=== PATIENT | female | born 1950 | race Caucasian/White ===

== ENCOUNTER → 2017-11-17 11:11 | Outpatient (CLI) | payer OTHER, SELFPAY ==
[2017-11-20 16:56] LABS: Fecal Immunochemical Test NOT DETECTED
== END ==
PROVIDERS: PCP Family Medicine; Visit Provider Family Medicine
DX: Z12.11 Encounter for screening for malignant neoplasm of colon (principal)
CPT/HCPCS: 82274

== ENCOUNTER → 2018-03-21 15:56 | Outpatient (CLI) | payer OTHER, SELFPAY ==
--- NOTE | 2018-03-21 15:58 | DI.RAD.S_ITS ---
PROCEDURE: XR LUMBAR SPINE 2-3V INDICATIONS: pelvic pain TECHNIQUE: 3 views of the lumbar spine were acquired. COMPARISON: None. FINDINGS: Bones: 5 [id number] vertebrae are present. There is dextroscoliotic bony alignment moderate in severity centered at L2. No vertebral body compression fractures. No suspicious bony lesions. Degenerative disc disease is moderate in severity along the lumbosacral spine and most prominent at L1-L2 and L4-L5. Facet osteoarthritis is moderate along the lumbosacral spine and most evident at L5-S1. Minimal anterolisthesis of L5 on S1 is incidentally noted. Soft tissues: Overlying bowel gas pattern is normal. No suspicious soft tissue calcifications. IMPRESSION: Chronic degenerative changes of convex right scoliosis this margins 30, no trauma found, no compression fracture seen. Spinal and foraminal stenosis likely is present. Dictated by: Hossein Mata M.D. on 03/21/2018 at 17:26 Approved by: Hossein Mata M.D. on 03/21/2018 at 17:27
== END ==
PROVIDERS: Family Provider Family Medicine; PCP Family Medicine; Visit Provider Family Medicine
DX: R10.2 Pelvic and perineal pain (principal); M41.86 Other forms of scoliosis, lumbar region
CPT/HCPCS: 72100

== ENCOUNTER → 2018-03-28 13:09 | Outpatient (CLI) | payer OTHER, SELFPAY ==
--- NOTE | 2018-03-28 | DI.MRI.S_ITS ---
PROCEDURE: MR KNEE RT WO CON INDICATIONS: TEAR OF MENISCUS OF RIGHT KNEE TECHNIQUE: Noncontrast sagittal PD fast spin echo and T2 fast spin echo with fat saturation, sagittal 3-D FLASH with fat saturation; coronal T1 spin echo and PD fast spin echo with fat saturation, and axial PD fast spin echo with fat saturation through the knee. COMPARISON: None. FINDINGS: Image quality: Excellent. Menisci: There is no evidence of focal medial meniscal tear. Signal abnormality involving anterior horn of lateral meniscus extending to inferior articulating surface is seen suspicious for focal oblique tear. The meniscal root ligaments appear intact. Cruciate ligaments: The anterior and posterior cruciate ligaments appear intact. Medial structures: The medial collateral ligament appears intact. The posterior oblique ligament, semimembranosus tendon insertions, oblique popliteal ligament, and meniscocapsular junction appear intact. Visualized portions of the pes anserinus tendons appear normal. No abnormal bursal fluid. Lateral structures: The lateral collateral ligament, long and short heads of the biceps femoris tendon appear intact. The popliteus tendon appears normal; the popliteofibular ligament appears intact. The posterosuperior and anteroinferior popliteomeniscal fascicles appear intact. The arcuate and fabellofibular ligaments appear intact, on either side of the lateral inferior geniculate artery. Iliotibial band appears normal. Anterior structures: The quadriceps and patellar tendons appear intact. Patellar alignment is normal. No femoral trochlear dysplasia or ventral trochlear prominence. No edema in the infrapatellar fat pad. Bones and cartilage: Moderate tricompartmental osteoarthritis is seen with joint space narrowing, thinning of articulating cartilage is and margin osteophyte formation. Significant chondromalacia involving medial and lateral facet of patella cartilage is seen with underlying subchondral cyst formation and edema suggestive of small osteochondral lesions in both medial and lateral facet of the posterior patella. There is also suggestion of small osteochondral lesion involving the weightbearing portion of medial femoral condyle and measures 7 mm in size. Joint space: There is small amount of joint fluid. No Watt's cyst. Normal appearing synovial plicae are incidentally noted. IMPRESSION: 1. Findings suggestive of focal oblique tear involving anterior horn of medial meniscus extending to inferior articulating surface. No evidence of focal medial meniscal tear. 2. Moderate tricompartmental osteoarthritis more prominent in patellofemoral compartment with extensive chondromalacia and suggestion of adjacent small osteochondral lesions in medial and lateral facet of the posterior patella. Small osteochondral lesion is also noted involving weightbearing portion of medial femoral condyle. Small joint effusion. 3. Cruciate ligaments are intact. Dictated by: Shaheen Coronado M.D. on 03/28/2018 at 15:27 Approved by: Shaheen Coronado M.D. on 03/28/2018 at 15:31
== END ==
PROVIDERS: Family Provider Family Medicine; PCP Family Medicine; Visit Provider Orthopaedic Surgery
DX: M17.11 Unilateral primary osteoarthritis, right knee (principal); M22.41 Chondromalacia patellae, right knee; M25.461 Effusion, right knee
CPT/HCPCS: 73721

== ENCOUNTER → 2018-03-29 09:22 | Outpatient (CLI) | payer OTHER, SELFPAY ==
--- NOTE | 2018-03-29 | DI.MG.S_ITS ---
BILATERAL DIGITAL SCREENING MAMMOGRAM 3D/2D WITH CAD: 03/29/2018 CLINICAL: Routine screening. Family history of breast cancer. Comparison is made to exams dated: 02/16/2017 mammogram, 02/13/2016 mammogram, and 02/11/2015 mammogram - [facility]. There are scattered fibroglandular elements in both breasts. Current study was also evaluated with a Computer Aided Detection (CAD) system. No significant masses, calcifications, or other findings are seen in either breast. There has been no significant interval change. IMPRESSION: NEGATIVE There is no mammographic evidence of malignancy. A 1 year screening mammogram is recommended. This exam was interpreted at Station ID: [id number]. NOTE: For mammograms, a report in lay terms will be sent to the patient. Approximately 15% of breast malignancies will not be visualized mammographically. In the management of a palpable breast mass, a negative mammogram must not discourage biopsy of a clinically suspicious lesion. Electronically Signed By: Alice rehman/jose g:03/29/2018 13:28:40 letter sent: Normal Exam ACR BI-RADS Category 1: Negative [id number]
== END ==
PROVIDERS: PCP Family Medicine; Visit Provider Family Medicine
DX: Z12.31 Encounter for screening mammogram for malignant neoplasm of breast (principal); Z80.3 Family history of malignant neoplasm of breast
CPT/HCPCS: 77063; 77067

== ENCOUNTER → 2018-04-05 10:11 | Outpatient (CLI) | payer OTHER, SELFPAY ==
--- NOTE | 2018-04-05 10:12 | DI.US.S_ITS ---
PROCEDURE: US PELVIC COMPLETE INDICATIONS: PAIN TECHNIQUE: Real-time scanning was performed of the pelvic organs, with image documentation. Additional endovaginal scanning was necessary due to incomplete visualization of the adnexal and endometrial structures by transabdominal scanning. COMPARISON: None. FINDINGS: Transabdominal scanning: Limited scanning through the kidneys shows no hydronephrosis. No pathologic free abdominal or pelvic fluid. Endovaginal scanning: Uterus: Uterus is normal in size at 2.5 x 3.4 x 4.6 cm, anteverted. The endometrium measures 6.3 mm in combined thickness. There also, however, is a 1.0 x 10.5 x 0.9 cm isoechoic solid mass with minimal internal vascularity within appearance suggestive of a polypoid neoplasm or benign polyp. Ovaries: The right ovary could not be located, the left ovary measures 2.0 x 1.0 x 0.9 cm. IMPRESSION: Polypoid endometrial mass measuring up to 1.0 x 0.5 x 0.9 cm with low-level internal vascularity. In a postmenopausal patient an endometrial malignant neoplasm could produce this appearance. Gynecological consultation is anticipated. Normal left ovary, nonvisualization of the right ovary likely due to a combination of postmenopausal ovarian atrophy and overlying bowel gas. Dictated by: Hossein Mata M.D. on 04/05/2018 at 12:17 Approved by: Hossein Mata M.D. on 04/05/2018 at 12:36
== END ==
PROVIDERS: PCP Family Medicine; Visit Provider Family Medicine
DX: M54.5 Low back pain (principal); N85.9 Noninflammatory disorder of uterus, unspecified; R10.2 Pelvic and perineal pain
CPT/HCPCS: 76830; 76856

== ENCOUNTER 2018-05-11 06:32 | Day surgery (SDC) | payer OTHER, SELFPAY ==
[2018-05-05 10:45] VITALS: BMI 23.6
[2018-05-11] VITALS (7 sets, daily range): BP systolic 113–131; BP diastolic 74–82; PULSE 63–78; RESP 9–15; TEMP 36.2–36.4; O2SAT 75–96; BMI 22.1
--- NOTE | 2018-05-11 | PATH_ITS ---
[facility] Accession Number: [id number] . 01 Material submitted: . ENDOMETRIAL POLYP AND CURETTINGS . 02 Diagnosis: Endometrial Polyp and Curettings: Portions of weakly proliferative endometrial tissue with features suggestive of cystic atrophy; negative for glandular hyperplasia, cytologic atypia and malignancy. [facility]/05/15/2018 . 02 Electronically signed: . Jen Conde MD, Pathologist NPI- [id number] . 01 Gross description: . ENDOMETRIAL POLYP AND CURETTINGS: Received in formalin are minute fragments of mucoid and hemorrhagic material measuring 1.7 x 0.7 x 0.3 cm in aggregate. Submitted in toto in 1 cassette. /CKI /CKI . 02 Pathologist provided ICD-10: N84.0 . 02 CPT . 884761 Performed at: 01 [facility] [address] [id number] MD Rodolfo Galvan MD Phone: [phone] Performed at: 02 [facility] [address] [place], [place] [id number] MD Nila Ludwig MD Phone: [phone]
[2018-05-11] MEDS: LACTATED RINGERS 1,000 ML 100 ML IV (07:12)
--- NOTE | 2018-05-11 07:21 | PM.PREOP ---
Pre-operative Note Interval Note Pre-op Check: Yes History & Physical exam performed today by Physician Changes: No
--- NOTE | 2018-05-11 07:21 | PM.HP.1 ---
History of Present Illness Date Patient Seen: 05/11/18 Time Patient Seen: 07:22 Chief complaint: d&c hysterscopy [id number] Narrative: Patient is a 67-year-old with an endometrial mass suggestive of an endometrial polyp Patient History Medical History Pelvic pain (Acute) Postmenopausal (Acute) Chronic back pain (Chronic 1999) Foot pain (Chronic 1989) Herpes (Chronic 1979) Osteopenia (Chronic 2004) Skin cancer (Chronic 2013) Tinnitus (Chronic 2009) Chicken pox (Resolved 1956) Fractures (Resolved 2007) Hepatitis A (Resolved 1956) Measles (Resolved 1957) Mumps (Resolved 1957) Surgical History Status post tubal ligation (Resolved 1986) Family & Social History Tobacco & Substance use: Smoking Status Never smoker alcohol intake current Substance Use Type does not use Meds Home Medications Medication Instructions Recorded Confirmed Type cholecalciferol (vitamin D3) 1 tab PO QDAY #0 04/05/17 05/05/18 History [Vitamin D3] alprazolam 0.25 mg tablet 0.25 mg PO BID 12/26/17 05/05/18 History zolpidem 5 mg tablet 5 mg PO BEDTIME PRN 03/21/18 05/05/18 History valacyclovir 1,000 mg PO BID #30 tab 04/06/18 05/05/18 Rx Allergies Allergy/AdvReac Type Severity Reaction Status Date / Time codeine Allergy Mild N/V Verified 05/05/18 10:47 Exam Vital Signs (past 8 hours): HEENT: No thyromegaly, no anterior cervical or supraclavicular lymphadenopathy. Lungs:Clear to auscultation bilaterally, no wheezes. Cardiovascular: Regular rate and rhythm, no murmurs, rubs, or gallops. Abdomen: No scars. No hepatosplenomegaly. No masses palpable. External genitalia: Normal Vagina: Normal Cervix: Normal Bimanual exam: 6 Week size uterus. Mobile.] Rectal: No masses. Assessment & Plan (1) Endometrial mass: Current visit: Yes Status: Acute Plan: Assessment/Plan Narrative: Assessment: 67-year-old with an endometrial mass on ultrasound Plan: D&C hysteroscopy with resection of mass The risks, benefits, and alternatives to the procedure were explained to the patient. The risks including bleeding, infection, and uterine perforation. She understands these risks and agrees to proceed. A full PAR-Q was held and consent form was signed. Time Spent With Patient Time with patient: less than 15 minutes
--- NOTE | 2018-05-11 08:11 | SUR.OPER ---
Lithotomy on padded OR bed, head on pillow, arms secured on padded arm boards at <90 degrees abduction. Legs secured in padded yellow fins stirrups.
--- NOTE | 2018-05-11 08:42 | SUR.PHASEI ---
pt awakens to name, denied pain/nausea.
--- NOTE | 2018-05-11 08:43 | PM.GYNOP.1 ---
Operative Date/Time/Diagnoses Date of procedure: 05/11/18 Time of procedure: 08:43 Pre-op diagnosis: Endometrial mass on ultrasound Post-op diagnosis: same Procedure: Procedures Operation Date: 05/11/18 07:45 Actual Procedures Side Surgeon p Hysteroscopy, resection endometrial polyp, dilation and curettage Zulma Lange MD Indications: Endometrial mass on ultrasound Surgeon: Zulma Lange Anesthesia Type: General (LMA) Operative Notes Findings: 6 week size anteverted uterus Both fallopian tube ostia observed Flat posterior polyp 1.0 x 1.0 cm Closure Type: not applicable Specimen(s): endometrial curettings and endometrial polyp Estimated blood loss (mL): 5 Blood products transfused: none Procedure in detail: After informed consent was obtained, the patient was taken to the operating room where she was placed in the dorsal supine position. After adequate LMA general anesthesia was achieved, she was placed in the dorsal lithotomy position, and prepped and draped in the usual sterile fashion. A time-out was performed. An attempt was made at placing a Graves speculum into the vagina. This was too large. A Holm speculum was placed into the vagina and the anterior lip of the cervix grasped with a single-tooth tenaculum. The cervical os was sequentially dilated to #8 Hegar dilator. The resectoscope was placed into the endometrial cavity. Both fallopian tube ostia were observed. Posteriorly there was a flat polyp measuring 1 cm x 1 cm. This was resected in 3 pieces using the loop with cutting cautery. Hemostasis was achieved. The resectoscope was removed from the uterus. Gentle sharp curettage was performed yielding minimal amount of endometrial curettings. The instruments were removed from the uterus. The single-tooth tenaculum was removed from the anterior lip of the cervix. The bivalve speculum was removed from the vagina. Sponge, lap, and instrument counts were correct x2. The patient tolerated the procedure well, and was taken to PACU in stable condition. Complications: none Post-operative Condition: stable Disposition: PACU Plan for aftercare: Home after recovery
--- NOTE | 2018-05-11 09:29 | SUR.PHASEII ---
waiting on prescriptions to be filled. at bedside patient resting in bed. no distress noted.
== END 2018-05-11 09:52 | disposition home or self-care (01) ==
PROVIDERS: PCP Family Medicine; Visit Provider Obstetrics & Gynecology
PROC: 0UDB8ZZ Extraction of Endometrium, Via Natural or Artificial Opening Endoscopic (ICD-10-PCS; CPT 58558; principal; 2018-05-11 07:45)
DX: N84.0 Polyp of corpus uteri (principal)
CPT/HCPCS: 58558; J1100; J1885; J2250; J2405; J2704; J3010

== ENCOUNTER → 2018-07-21 07:54 | Outpatient (CLI) | payer OTHER, SELFPAY ==
[2018-07-21 09:11] LABS: Add Manual Diff / Slide Review NO; Basophils Absolute Auto 100 /uL (0-100); Basophils Percent Auto 0.8 % (0-2); Eosinophils Absolute Auto 200 /uL (0-450); Hematocrit 45.9 % (36-46); Hemoglobin 15.1 g/dL (12.0-16.0); Lymphocytes Absolute Auto 1800 /uL (1100-4500); Lymphocytes Percent Auto 29.9 % (25-40); Mean Corpuscular Hemoglobin 31.4 PG (26-34); Mean Corpuscular Volume 95.1 fL (80-100); Monocytes Absolute Auto 600 /uL (0-900); Neutrophils Absolute Auto 3300 /uL (1500-7000); Neutrophils Percent Auto 55.3 % (50-75); Platelet Count 344 X10^3/uL (150-400); Red Blood Cell Count 4.82 X10^6/uL (4.0-5.2); Red Cell Distribution Width 12.8 % (11.6-14.8); White Blood Cell Count 6.1 X10^3/uL (4.5-11.0)
[2018-07-21 09:43] LABS: Alanine Aminotransferase 24 IU/L (9-52); Albumin 4.4 g/dL (3.5-5.0); Albumin Globulin Ratio 1.3 (1.0-2.8); Alkaline Phosphatase 125 U/L (38-126); Aspartate Aminotransferase 23 IU/L (14-36); Bilirubin Total 0.5 mg/dL (0.2-1.3); Blood Urea Nitrogen 18 mg/dL (7-17); Carbon Dioxide 29 mmol/L (22-32); Chloride 102 mmol/L (98-107); Cholesterol 200 mg/dL (140-199); Estimated Glomerular Filt Rate > 60.0 mL/min (>60); Globulin 3.3 g/dL (1.7-4.1); Glucose 95 mg/dL (80-110); HDL Cholesterol 57 mg/dL (40-60); HEMOLYSIS < 15 (0-50); LDL Cholesterol Calculated 121 mg/dL (<100); Potassium 3.9 mmol/L (3.4-5.1); Sodium 139 mmol/L (137-145); Total Protein 7.7 g/dL (6.3-8.2); Triglycerides 110 mg/dL (35-150)
[2018-07-21 10:14] LABS: TSH w/ Reflex to FT4 2.71 uIU/mL (0.47-4.68)
== END ==
PROVIDERS: PCP Family Medicine; Visit Provider Family Medicine
DX: E78.5 Hyperlipidemia, unspecified (principal)
CPT/HCPCS: 36415; 80053; 80061; 84443; 85025

== ENCOUNTER → 2018-08-22 12:29 | Outpatient (CLI) | payer OTHER, SELFPAY ==
--- NOTE | 2018-08-22 12:29 | DI.US.S_ITS ---
PROCEDURE: US ABDOMEN COMPLETE INDICATIONS: RIGHT UPPER QUADRANT PAIN RADIATING TO LEFT TECHNIQUE: Real-time scanning was performed of the abdominal and retroperitoneal organs, with image documentation. COMPARISON: [facility], US, ABDOMEN COMPLETE, 07/31/2008, 8:59. FINDINGS: Liver: Liver is normal in size and homogeneous in echotexture. The left lobe liver cyst measuring 19 mm. Gallbladder: No gallstones identified. Normal gallbladder wall. No pericholecystic fluid. Negative sonographic Cat sign. Biliary ducts: Intrahepatic bile ducts are non-dilated. Extrahepatic bile duct caliber measures 5.0 mm. Normal is 6-7 mm or less in diameter, or 10 mm or less post-cholecystectomy. Pancreas: Visualized portions of the pancreas are sonographically normal. Spleen: Spleen is normal in size and homogeneous in echotexture. Kidneys: Kidneys are normal in size and echotexture. Right kidney measures 10.3 cm long; left kidney measures 9.4 cm long. No hydronephrosis or nephrolithiasis. No solid masses. Aorta: Visualized aorta is normal in caliber at less than 3 cm. Iliacs: Proximal common iliac arteries are normal in caliber at less than 2.5 cm. IVC: Intrahepatic inferior vena cava is patent. Miscellaneous: No free abdominal fluid. IMPRESSION: No source for right upper quadrant pain identified. Dictated by: [facility] Interpreted: Hossein Mata MD on 08/22/2018 at 13:05 Approved by: Hossein Mata M.D. on 08/22/2018 at 15:01
== END ==
PROVIDERS: PCP Family Medicine; Visit Provider Nurse Practitioner
DX: R10.11 Right upper quadrant pain (principal)
CPT/HCPCS: 76700

== ENCOUNTER → 2018-08-29 10:56 | Outpatient (CLI) | payer OTHER, SELFPAY ==
[2018-08-31 14:06] LABS: Fecal Immunochemical Test NOT DETECTED (NOT DETECTED)
== END ==
PROVIDERS: PCP Family Medicine; Visit Provider Family Medicine
DX: Z12.11 Encounter for screening for malignant neoplasm of colon (principal)
CPT/HCPCS: 82274

== ENCOUNTER → 2018-10-11 12:56 | Outpatient (CLI) | payer OTHER, SELFPAY ==
--- NOTE | 2018-10-11 12:59 | DI.CT.S_ITS ---
PROCEDURE: CT ABDOMEN PELVIS W CON INDICATIONS: Lower abdominal pain TECHNIQUE: After the administration of oral and intravenous contrast, 5 mm thick sections acquired from the diaphragms to the symphysis. 5 mm thick coronal and sagittal reformats were performed. For radiation dose reduction, the following was used: automated exposure control, adjustment of mA and/or kV according to patient size. COMPARISON: None. FINDINGS: Image quality: Excellent. ABDOMEN: Lung bases: Lung bases are clear. Heart size is normal. Solid organs: Presumed hepatic cysts involving the subcapsular left lobe on image 10 series 2 measuring 1.5 cm Gallbladder demonstrates questionable wall thickening however decompressed at the time the exam therefore please correlate clinically and with LFTs. No radiopaque gallstones identified. Biliary system is non-dilated. Pancreas enhances normally. Chronic granulomatous constipation scattered throughout the spleen. No adrenal nodules. Kidneys are normal in size and enhancement, without hydronephrosis. Peritoneum and bowel: Stomach, small bowel, and colon loops are normal in caliber and wall thickness. No free fluid or air. The appendix is within normal limits Rectum is grossly unremarkable Nodes and vessels: No retroperitoneal or mesenteric adenopathy. Aorta and inferior vena cava are normal in caliber. Miscellaneous: No ventral hernias. PELVIS: Genitourinary: Bladder wall thickness is normal. Miscellaneous: No inguinal hernias or adenopathy. Bones: No suspicious bony lesions. No vertebral body compression fractures. IMPRESSION: Overall, no acute process identified. Normal appearance of the appendix. Questionable gallbladder wall thickening however the gallbladder is partially collapsed at the time the study and therefore please correlate clinically and if necessary with LFTs. No cholelithiasis is seen. Additional chronic and incidental findings as above. Dictated by: Trace Hayward M.D. on 10/11/2018 at 15:24 Approved by: Trace Hayward M.D. on 10/11/2018 at 15:31
[2018-10-11 13:56] LABS: Blood Urea Nitrogen 16 mg/dL (7-17); Estimated Glomerular Filt Rate > 60.0 mL/min (>60)
== END ==
PROVIDERS: PCP Family Medicine; Visit Provider Family Medicine
DX: Z01.812 Encounter for preprocedural laboratory examination (principal); R10.31 Right lower quadrant pain
CPT/HCPCS: 36415; 74177; 82565; 84520; Q9967

== ENCOUNTER → 2019-01-26 19:12 | Outpatient (CLI) | payer OTHER, SELFPAY ==
--- NOTE | 2019-01-26 19:15 | DI.RAD.S_ITS ---
PROCEDURE: XR FOOT LT MIN 3V INDICATIONS: Left foot pain TECHNIQUE: 3 views of the foot were acquired. COMPARISON: None. FINDINGS: Bones: No fractures or dislocations. No suspicious bony lesions. Scattered IP degenerative narrowing is present. Soft tissues: No tibiotalar joint effusion. Achilles tendon appears normal. IMPRESSION: No visualized acute fracture or dislocation. However, if clinical concern and/or pain persist, short interval imaging followup in 7-10 days is recommended, as occult injury cannot be definitively excluded. Dictated by: Oliva Hargrove M.D. on 01/26/2019 at 20:03 Approved by: Oliva Hargrove M.D. on 01/26/2019 at 20:04
== END ==
PROVIDERS: PCP Family Medicine; Visit Provider Physician Assistant
DX: M79.672 Pain in left foot (principal)
CPT/HCPCS: 73630

== ENCOUNTER → 2019-03-30 08:28 | Outpatient (CLI) | payer OTHER, SELFPAY ==
[2019-03-30 10:31] LABS: BUN Creatinine Ratio 22.9 (6-22); Blood Urea Nitrogen 16 mg/dL (7-17); Estimated Glomerular Filt Rate > 60.0 mL/min (>60)
== END ==
PROVIDERS: Podiatrist; PCP Family Medicine; Visit Provider Family Medicine
DX: Z13.29 Encounter for screening for other suspected endocrine disorder (principal)
CPT/HCPCS: 36415; 82565; 84520

== ENCOUNTER → 2019-04-02 08:10 | Outpatient (CLI) | payer OTHER, SELFPAY ==
--- NOTE | 2019-04-02 | DI.MRI.S_ITS ---
PROCEDURE: MR FOOT LT WO/W CON INDICATIONS: Lesion of plantar nerve, left lower limb TECHNIQUE: Noncontrast long-axis T1 spin echo and T2 fast spin echo with fat saturation, short-axis T1 spin echo with and without fat saturation, and short-axis T2 fast spin echo with fat saturation. After the administration of contrast, short-axis T1 spin echo with fat saturation through the forefoot. COMPARISON: [facility], CR, XR FOOT LT MIN 3V, 01/26/2019, 19:29. FINDINGS: Image quality: Excellent. Bones and joints: There is significant marrow edema throughout mid to distal second metatarsal shaft with medial cortical thickening and periosteal reaction. Subtle hypointense signal is seen traversing the second metatarsal shaft, concerning for a healing stress fracture in this area. Significant surrounding soft tissue edema and swelling is noted. The sesamoid bones appear in expected positions, without internal edema. No metatarsophalangeal joint degeneration. No intraosseous lesions. Soft tissues: No enhancing lesions between the metatarsal heads to suggest Gleason's neuromas. No rim-enhancing intermetatarsal bursal fluid collections are present. The visualized plantar foot muscles demonstrate normal signal and bulk. Visualized flexor and extensor tendons appear intact, without tenosynovitis. IMPRESSION: 1. Finding is suggestive of healing nondisplaced stress fracture involving distal second metatarsal shaft with surrounding soft tissue edema and medial cortical thickening with periosteal reaction. No other area of abnormal marrow signal is seen. Continued clinical and radiographic followup is recommended. 2. No enhancing soft tissue mass is noted in the second interspace to suggest Gleason's neuroma formation. Flexor and extensor tendons are grossly intact. Dictated by: Shaheen Coronado M.D. on 04/02/2019 at 14:46 Approved by: Shaheen Coronado M.D. on 04/02/2019 at 14:56
== END ==
PROVIDERS: PCP Family Medicine; Visit Provider Podiatrist
DX: G57.62 Lesion of plantar nerve, left lower limb (principal); R60.0 Localized edema
CPT/HCPCS: 73720; A9579

== ENCOUNTER → 2019-04-06 13:09 | Outpatient (CLI) | payer OTHER, SELFPAY ==
--- NOTE | 2019-04-06 | DI.MG.S_ITS ---
BILATERAL DIGITAL SCREENING MAMMOGRAM 3D/2D WITH CAD: 04/06/2019 CLINICAL: Routine screening. Family history of breast cancer. Comparison is made to exams dated: 03/29/2018 mammogram, 02/16/2017 mammogram, and 02/13/2016 mammogram - [facility]. There are scattered fibroglandular elements in both breasts. Current study was also evaluated with a Computer Aided Detection (CAD) system. No significant masses, calcifications, or other findings are seen in either breast. There has been no significant interval change. IMPRESSION: NEGATIVE There is no mammographic evidence of malignancy. A 1 year screening mammogram is recommended. This exam was interpreted at Station ID: [id number]. NOTE: For mammograms, a report in lay terms will be sent to the patient. Approximately 15% of breast malignancies will not be visualized mammographically. In the management of a palpable breast mass, a negative mammogram must not discourage biopsy of a clinically suspicious lesion. Electronically Signed By: Lora nava/jose g:04/06/2019 14:01:20 letter sent: Normal Exam ACR BI-RADS Category 1: Negative 3341F
== END ==
PROVIDERS: PCP Family Medicine; Visit Provider Family Medicine
DX: Z12.31 Encounter for screening mammogram for malignant neoplasm of breast (principal); Z80.3 Family history of malignant neoplasm of breast
CPT/HCPCS: 77063; 77067

== ENCOUNTER → 2019-07-19 11:44 | Outpatient (CLI) | payer OTHER, SELFPAY ==
--- NOTE | 2019-07-19 | DI.MRI.S_ITS ---
PROCEDURE: MR KNEE RT WO CON INDICATIONS: RIGHT KNEE PAIN TECHNIQUE: Noncontrast sagittal PD fast spin echo and T2 fast spin echo with fat saturation, sagittal 3-D FLASH with fat saturation; coronal T1 spin echo and PD fast spin echo with fat saturation, and axial PD fast spin echo with fat saturation through the knee. COMPARISON: [facility], MR, MR KNEE RT WO CON, 03/28/2018, 13:30. FINDINGS: Image quality: Excellent. Menisci: There is lateral meniscal extrusion. A large horizontal tear is present involving the body of the lateral meniscus. In addition, there is degenerative tear involving the peripheral aspect of the anterior horn of the lateral meniscus. The medial meniscus appears intact. The meniscal root ligaments appear intact. Cruciate ligaments: The proximal anterior cruciate ligament appears thickened, suspicious for partial tear. The posterior cruciate ligament appears intact. Medial structures: The medial collateral ligament appears intact. The semimembranosus tendon insertions and meniscocapsular junction appear intact. Visualized portions of the pes anserinus tendons appear normal. No abnormal bursal fluid. Lateral structures: The lateral collateral ligament and the biceps femoris tendon appear intact. The popliteus tendon appears normal. Iliotibial band appears normal. Anterior structures: The quadriceps and patellar tendons appear intact. Patellar alignment is normal. No femoral trochlear dysplasia or ventral trochlear prominence. No edema in the infrapatellar fat pad. Bones and cartilage: Possible nondisplaced fracture of the lateral tibial plateau with a linear low signal and associated bone marrow edema. There is bone marrow contusions involving the anterior aspect of the medial femoral condyle, posterior aspect of the lateral femoral condyle, and the fibular head. There is moderate to severe chondromalacia patella. There is mild cartilage thinning and fibrillation in the medial and lateral femorotibial compartments. Joint space: There is small knee joint effusion. No Watt's cyst. Normal appearing synovial plicae are incidentally noted. IMPRESSION: 1. Large horizontal tear of the body of the lateral meniscus. 2. Degenerative tear of the peripheral aspect of the anterior horn the lateral meniscus. 3. Probable partial tear of the proximal anterior cruciate ligament. 4. Tricompartmental cartilage loss, most pronounced in the patellofemoral joint. 5. Suspect nondisplaced lateral tibial plateau fracture. 6. Bone marrow contusions are present in the medial and lateral femoral condyles, as well as the fibular head. 7. Small knee joint effusion. Dictated by: José Rosa M.D. on 07/19/2019 at 12:43 Transcribed by: MELLY on 07/19/2019 at 12:58 Approved by: Jsoé Rosa M.D. on 07/19/2019 at 15:36
== END ==
PROVIDERS: PCP Family Medicine; Referring Provider Orthopaedic Surgery; Visit Provider Orthopaedic Surgery
DX: M25.561 Pain in right knee (principal); S83.281A Other tear of lateral meniscus, current injury, right knee, initial encounter; S80.01XA Contusion of right knee, initial encounter; M25.461 Effusion, right knee
CPT/HCPCS: 73721

== ENCOUNTER → 2019-12-08 14:11 | Outpatient (CLI) | payer OTHER, SELFPAY ==
[2019-12-09 17:51] LABS: COVID19 Sendout Not Detected (Not Detect)
== END ==
PROVIDERS: PCP Family Medicine; Visit Provider Physician Assistant
DX: Z01.812 Encounter for preprocedural laboratory examination (principal)
CPT/HCPCS: 87635

== ENCOUNTER 2019-12-11 07:15 | Day surgery (SDC) | payer OTHER, SELFPAY ==
[2019-12-11] MEDS: PROPARACAINE 0.5% OPHTH SOL 2 DROPS EYE-OP (08:00)
[2019-12-11] MEDS: CATARACT EYE COMPOUND (10 DROPS/SYRINGE) 3 DROPS EYE-OP (08:01)
[2019-12-11 08:05] VITALS: BP 122/79; PULSE 61; RESP 14; TEMP 36.3; O2SAT 100; BMI 25.0
--- NOTE | 2019-12-11 09:10 | P.OP_ITS ---
Operative Date/Time/Diagnoses Pre-op diagnosis: Nuclear Cataract Left eye Post-op diagnosis: same Procedure & Clinicians Same procedure as scheduled: Yes Surgeon: Donaldo Ni Anesthesia Type: MAC +/- and Sedation Operative Notes Procedure in detail: Patient brought to the operating suite. Tetracaine drops placed in the left eye. Patient was prepped and draped in sterile manner. Wire lid speculum was placed in the eye. Betadine drops were placed on the eye. This was irrigated. Lidocaine jelly was placed on the eye. A paracentesis port was created with a side-port blade. 0.1 mL 1% preservative free lidocaine was injected into the anterior chamber. The anterior chamber was deepened with viscoelastic. 2.6 mm keratome was used to create a temporal clear corneal incision. Cystotome and Utrata forceps were used to create continuous tear capsulorrhexis. Balanced salt solution was used to hydro dissect the nucleus. The phacoemulsification handpiece was inserted and the nucleus was removed using the stop and chop technique. The irrigation aspiration handpiece was inserted and the remaining cortex was removed. Anterior chamber was deepened with viscoe lastic. An Allen ZCB00 intraocular lens with a power of 24.5 was injected into the capsular bag. Irrigation aspiration handpiece was inserted and the remaining viscoelastic was removed. Incision was hydrated with balanced salt solution and found to be leak free with pressure with Weck-Abi sponges. 0.1 mL Vigamox injected anterior chamber. 0.3 mL Kenalog 10 mg was injected subconjunctivally. Lid speculum was removed. The patient left the operating room in excellent condition. Complications: none Post-operative Condition: stable Disposition: same day surgery
--- NOTE | 2019-12-11 09:10 | PM.PREOP ---
Pre-operative Note Interval Note History & Physical reviewed/Exam performed by Physician: Yes Changes to H&P: No
[2019-12-11] MEDS: CHONDROIDTIN/SOD HYALURONATE 1.05 ML SYRINGE INTRAOCULA (09:23)
[2019-12-11] MEDS: MOXIFLOXACIN INJ 5 MG/ML VIAL EYE-OP (09:23)
[2019-12-11] MEDS: LIDOCAINE JELLY 2% 5 ML 1 APPLIC TOP (09:23)
[2019-12-11] MEDS: TETRACAINE 0.5% OPHTH DROPS 4 ML 2 DROPS EYE-OP (09:24)
[2019-12-11] MEDS: BALANCED SALT IRRIG SOLN NO.2 500 ML, EPINEPHrine 1 MG IRR (09:24)
[2019-12-11] MEDS: PHENYLEPHRINE/LIDOCAINE VIAL (OR) 0.2 ML EYE-OP (09:24)
[2019-12-11] MEDS: TRIAMCINOLONE 50 MG/5 ML VIAL INJ (09:24)
== END 2019-12-11 10:00 | disposition home or self-care (01) ==
PROVIDERS: PCP Family Medicine; Referring Provider Ophthalmology; Visit Provider Ophthalmology
PROC: (CPT 66984; principal; 2019-12-11 09:15)
DX: H25.12 Age-related nuclear cataract, left eye (principal)
CPT/HCPCS: 66984; J0171; J2250; J3301

== ENCOUNTER → 2019-12-22 10:56 | Outpatient (CLI) | payer OTHER, SELFPAY ==
[2019-12-24 06:36] LABS: COVID19 Sendout Not Detected (Not Detect)
== END ==
PROVIDERS: PCP Family Medicine; Visit Provider Physician Assistant
DX: Z01.812 Encounter for preprocedural laboratory examination (principal)
CPT/HCPCS: 87635

== ENCOUNTER 2019-12-25 07:01 | Day surgery (SDC) | payer OTHER, SELFPAY ==
[2019-12-25] MEDS: PROPARACAINE 0.5% OPHTH SOL 2 DROPS EYE-OP (07:23)
[2019-12-25] MEDS: CATARACT EYE COMPOUND (10 DROPS/SYRINGE) 3 DROPS EYE-OP (07:28)
[2019-12-25 07:31] VITALS: BP 149/95; PULSE 67; RESP 18; TEMP 36.4; O2SAT 95; BMI 24.9
--- NOTE | 2019-12-25 08:03 | PM.PREOP ---
Pre-operative Note Interval Note History & Physical reviewed/Exam performed by Physician: Yes Changes to H&P: No
--- NOTE | 2019-12-25 08:03 | PM.OP.1 ---
Operative Date/Time/Diagnoses Pre-op diagnosis: Nuclear cataract right eye Procedure & Clinicians Procedure: Cataract Surgery Same procedure as scheduled: Yes Surgeon: Donaldo Ni Anesthesia Type: MAC +/- and Sedation Operative Notes Procedure in detail: Patient brought to the operating suite. Tetracaine drops placed in the right eye. Patient was prepped and draped in sterile manner. Wire lid speculum was placed in the eye. Betadine drops were placed on the eye. This was irrigated. Lidocaine jelly was placed on the eye. A paracentesis port was created with a side-port blade. 0.1 mL 1% preservative free lidocaine was injected into the anterior chamber. The anterior chamber was deepened with viscoelastic. 2.6 mm keratome was used to create a temporal clear corneal incision. Cystotome and Utrata forceps were used to create continuous tear capsulorrhexis. Balanced salt solution was used to hydro dissect the nucleus. The phacoemulsification handpiece was inserted and the nucleus was removed using the stop and chop technique. The irrigation aspiration handpiece was inserted and the remaining cortex was removed. Anterior chamber was deepened with viscoelastic. An Allen ZCB00 intraocular lens with a power of 24.0 was injected into the capsular bag. Irrigation aspiration handpiece was inserted and the remaining viscoelastic was removed. Incision was hydrated with balanced salt solution and found to be leak free with pressure with Weck-Abi sponges. 0.1 mL Vigamox injected anterior chamber. 0.3 mL Kenalog 10 mg was injected subconjunctivally. Lid speculum was removed. The patient left the operating room in excellent condition. Complications: none Post-operative Condition: stable Disposition: same day surgery
[2019-12-25] MEDS: PHENYLEPHRINE/LIDOCAINE VIAL (OR) 0.2 ML EYE-OP (08:23)
[2019-12-25] MEDS: MOXIFLOXACIN INJ 5 MG/ML VIAL EYE-OP (08:23)
[2019-12-25] MEDS: TETRACAINE 0.5% OPHTH DROPS 4 ML 2 DROPS EYE-OP (08:24)
[2019-12-25] MEDS: LIDOCAINE JELLY 2% 5 ML 1 APPLIC TOP (08:24)
[2019-12-25] MEDS: BALANCED SALT IRRIG SOLN NO.2 500 ML, EPINEPHrine 1 MG IRR (08:24)
[2019-12-25] MEDS: TRIAMCINOLONE 50 MG/5 ML VIAL INJ (08:24)
[2019-12-25] MEDS: CHONDROIDTIN/SOD HYALURONATE 1.05 ML SYRINGE INTRAOCULA (08:24)
[2019-12-25] MEDS: ONDANSETRON 4 MG/2 ML INJ IV ×2 (08:35→09:26)
[2019-12-25 08:40] VITALS: BP 143/91; PULSE 82; RESP 16; TEMP 36.6; O2SAT 89
--- NOTE | 2019-12-25 09:27 | SUR.PHASEII ---
Late entry: Pt arrived to [facility] dry heaving, emisis bag given small amount yellow vomit in bag. Ondansetron given, IV fluid started. One hour later, still dry heaving and vomiting, Dr. Santo called, second dose ondansetron given. Pt's at bedside- supportive.
[2019-12-25 09:30] VITALS: BP 140/90; PULSE 79; RESP 16; TEMP 36.6; O2SAT 95
[2019-12-25 10:15] VITALS: BP 141/92; PULSE 73; RESP 18; TEMP 36.6; O2SAT 96
[2019-12-25 10:45] VITALS: BP 134/90; PULSE 72; RESP 16; TEMP 36.6; O2SAT 97
[2019-12-25 11:06] VITALS: BP 129/81; PULSE 62; RESP 16; TEMP 36.3; O2SAT 97
--- NOTE | 2019-12-25 14:02 | SUR.PHASEII ---
Late entry: Dr. Cramer came to pt's bedside x 2 to assess pt, pt given 2 doses of ondansetron and persisted with dry heaves. 1050 pt still occasional dry heaving, Dr. Cramer ok if pt discharged and pt wanting to go home. Pt dressed and left when ready and left with no further dry heaves.
--- NOTE | 2019-12-25 14:06 | SUR.PHASEII ---
Addendum: when pt started to dry heave, cool washcloth applied, and queaze eaze to bedside.
== END 2019-12-25 11:25 | disposition home or self-care (01) ==
PROVIDERS: PCP Family Medicine; Referring Provider Ophthalmology; Visit Provider Ophthalmology
PROC: (CPT 66984; principal; 2019-12-25 08:15)
DX: H25.11 Age-related nuclear cataract, right eye (principal)
CPT/HCPCS: 66984; J0171; J2250; J2405; J3010; J3301

== ENCOUNTER → 2020-01-28 08:20 | Outpatient (CLI) | payer OTHER, SELFPAY ==
--- NOTE | 2020-01-28 08:21 | DI.RAD.S_ITS ---
PROCEDURE: XR KNEE RT 3V INDICATIONS: right knee pain TECHNIQUE: 3 views of the knee were acquired. COMPARISON: [facility], , KNEE 3V RIGHT, 09/26/2017, 8:25. FINDINGS: Bones: No fractures or dislocations. 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 No suspicious bony lesions. Soft tissues: Small suprapatellar joint effusion is noted.. No suspicious soft tissue calcifications. IMPRESSION: Fwlj-cz-oofewyto tricompartmental osteoarthritis. Small joint effusion. No acute fracture or dislocation. Dictated by: Shaheen Coronado M.D. on 01/28/2020 at 8:34 Approved by: Shaheen Coronado M.D. on 01/28/2020 at 8:34
== END ==
PROVIDERS: PCP Family Medicine; Referring Provider Family Medicine; Visit Provider Physician Assistant
DX: M25.561 Pain in right knee (principal); M17.11 Unilateral primary osteoarthritis, right knee; M25.461 Effusion, right knee
CPT/HCPCS: 73562

== ENCOUNTER → 2020-02-11 07:08 | Outpatient (CLI) | payer OTHER, SELFPAY ==
[2020-02-11 08:01] LABS: Add Manual Diff / Slide Review NO; Basophils Absolute Auto 0 /uL (0-100); Basophils Percent Auto 0.8 % (0-2); Eosinophils Absolute Auto 100 /uL (0-450); Eosinophils Percent Auto 2.1 % (2-4); Hemoglobin 14.4 g/dL (12.0-16.0); Lymphocytes Absolute Auto 1900 /uL (1100-4500); Lymphocytes Percent Auto 31.1 % (25-40); Mean Corpuscular HGB Conc 32.7 % (30-36); Mean Corpuscular Hemoglobin 30.9 PG (26-34); Mean Corpuscular Volume 94.6 fL (80-100); Monocytes Absolute Auto 500 /uL (0-900); Monocytes Percent Auto 8.7 % (3-14); Neutrophils Absolute Auto 3600 /uL (1500-7000); Neutrophils Percent Auto 57.3 % (50-75); Platelet Count 267 X10^3/uL (150-400); Red Blood Cell Count 4.65 X10^6/uL (4.0-5.2); Red Cell Distribution Width 12.8 % (11.6-14.8); White Blood Cell Count 6.2 X10^3/uL (4.5-11.0)
[2020-02-11 08:03] LABS: Alanine Aminotransferase 15 IU/L (<35); Albumin 4.3 g/dL (3.5-5.0); Albumin Globulin Ratio 1.5 (1.0-2.8); Alkaline Phosphatase 65 U/L (38-126); Aspartate Aminotransferase 25 IU/L (14-36); BUN Creatinine Ratio 20.2 (6-22); Bilirubin Total 0.6 mg/dL (0.2-1.3); Blood Urea Nitrogen 18 mg/dL (7-17); Calcium 10.3 mg/dL (8.4-10.2); Carbon Dioxide 31 mmol/L (22-32); Chloride 105 mmol/L (98-107); Cholesterol 223 mg/dL (140-199); Estimated Glomerular Filt Rate > 60.0 mL/min (>60); Globulin 2.8 g/dL (1.7-4.1); Glucose 91 mg/dL (80-110); HDL Cholesterol 65 mg/dL (40-60); HEMOLYSIS < 15 (0-50); LDL Cholesterol Calculated 135 mg/dL (<100); Potassium 4.9 mmol/L (3.4-5.1); Sodium 141 mmol/L (137-145); Total Protein 7.1 g/dL (6.3-8.2); Triglycerides 116 mg/dL (35-150)
[2020-02-11 08:32] LABS: TSH w/ Reflex to FT4 2.67 uIU/mL (0.47-4.68)
== END ==
PROVIDERS: PCP Family Medicine; Referring Provider Family Medicine; Visit Provider Family Medicine
DX: Z00.00 Encounter for general adult medical examination without abnormal findings (principal); Z13.1 Encounter for screening for diabetes mellitus; Z13.6 Encounter for screening for cardiovascular disorders
CPT/HCPCS: 36415; 80053; 80061; 84443; 85025

== ENCOUNTER → 2020-05-26 09:29 | Outpatient (CLI) | payer OTHER, SELFPAY ==
--- NOTE | 2020-05-26 | DI.US.S_ITS ---
LIMITED ULTRASOUND OF LEFT BREAST: 05/26/2020 CLINICAL: Focal left breast pain. Comparison is made to exams dated: 05/26/2020 mammogram, 04/06/2019 mammogram, 03/29/2018 mammogram, and 02/16/2017 mammogram - [facility]. Real-time ultrasound of the left breast was performed. Griffith scale images of the real-time examination were reviewed. No significant abnormalities were seen sonographically in the left breast. IMPRESSION: NEGATIVE There is no sonographic evidence of malignancy. There is no abnormality seen in the left breast to correspond with the pain at 10 o'clock, however, clinical correlation is recommended. A 1 year screening mammogram is recommended. This exam was interpreted at Station ID: [id number]. Electronically Signed By: Grupo machado/jose g:05/26/2020 11:17:43 letter sent: Clinical Evaluation Ultrasound BI-RADS: 1 Negative
--- NOTE | 2020-05-26 09:29 | DI.MG.S_ITS ---
BILATERAL DIGITAL DIAGNOSTIC MAMMOGRAM 3D/2D: 05/26/2020 CLINICAL: LEFT breast pain. Comparison is made to exams dated: 04/06/2019 mammogram, 03/29/2018 mammogram, and 02/16/2017 mammogram - [facility]. There are scattered fibroglandular elements in both breasts. No significant masses, calcifications, or other findings are seen in either breast. IMPRESSION: INCOMPLETE: NEEDS ADDITIONAL IMAGING EVALUATION There is no abnormality seen in the left breast to correspond with the pain in the upper inner quadrant, however, ultrasound is recommended. This exam was interpreted at Station ID: [id number]. NOTE: For mammograms, a report in lay terms will be sent to the patient. Approximately 15% of breast malignancies will not be visualized mammographically. In the management of a palpable breast mass, a negative mammogram must not discourage biopsy of a clinically suspicious lesion. SUMMARY: Targeted ultrasound is recommended for further evaluation and will be scheduled immediately following this exam. Electronically Signed By: Grupo machado/jose g:05/26/2020 10:26:28 ACR BI-RADS Category 0: Incomplete [id number]
== END ==
PROVIDERS: PCP Family Medicine; Referring Provider Family Medicine; Visit Provider Family Medicine
DX: R92.2 Inconclusive mammogram (principal); N64.4 Mastodynia
CPT/HCPCS: 76642; 77066; G0279

== ENCOUNTER → 2021-03-03 10:04 | Outpatient (CLI) | payer OTHER, SELFPAY ==
--- NOTE | 2021-03-03 10:06 | DI.RAD.S_ITS ---
PROCEDURE: XR CHEST 2V INDICATIONS: Lymphadenopathy L arm/chest/supraclavic after flu shot TECHNIQUE: 2 views of the chest were acquired. COMPARISON: [facility], , CHEST 2 VIEW, 04/10/2009, 11:25. FINDINGS: Surgical changes and devices: None. Lungs and pleura: Lungs are clear. No pleural effusions or pneumothorax. Mediastinum: Mediastinal contours are normal. Heart size is normal. Bones and chest wall: Scoliosis and discogenic changes. IMPRESSION: No acute disease. Dictated by: Trace Hayward M.D. on 03/03/2021 at 12:58 Approved by: Trace Hayward M.D. on 03/03/2021 at 12:59
[2021-03-03 10:58] LABS: Add Manual Diff / Slide Review NO; Basophils Absolute Auto 100 /uL (0-100); Basophils Percent Auto 1.2 % (0-2); Eosinophils Absolute Auto 200 /uL (0-450); Eosinophils Percent Auto 2.7 % (2-4); Hemoglobin 14.4 g/dL (12.0-16.0); Lymphocytes Absolute Auto 1800 /uL (1100-4500); Lymphocytes Percent Auto 29.4 % (25-40); Mean Corpuscular HGB Conc 32.7 % (30-36); Mean Corpuscular Hemoglobin 30.8 PG (26-34); Mean Corpuscular Volume 94.4 fL (80-100); Monocytes Absolute Auto 500 /uL (0-900); Monocytes Percent Auto 8.1 % (3-14); Neutrophils Absolute Auto 3600 /uL (1500-7000); Neutrophils Percent Auto 58.6 % (50-75); Platelet Count 319 X10^3/uL (150-400); Red Blood Cell Count 4.66 X10^6/uL (4.0-5.2); Red Cell Distribution Width 12.7 % (11.6-14.8); White Blood Cell Count 6.1 X10^3/uL (4.5-11.0)
[2021-03-03 12:03] LABS: Alanine Aminotransferase 16 IU/L (<35); Albumin 4.4 g/dL (3.5-5.0); Albumin Globulin Ratio 1.7 (1.0-2.8); Alkaline Phosphatase 67 U/L (38-126); Aspartate Aminotransferase 28 IU/L (14-36); BUN Creatinine Ratio 23.5 (6-22); Bilirubin Total 0.5 mg/dL (0.2-1.3); Blood Urea Nitrogen 19 mg/dL (7-17); Calcium 10.7 mg/dL (8.4-10.2); Carbon Dioxide 31 mmol/L (22-32); Chloride 101 mmol/L (98-107); Estimated Glomerular Filt Rate > 60.0 mL/min (>60); Globulin 2.6 g/dL (1.7-4.1); Glucose 105 mg/dL (80-110); HEMOLYSIS < 15 (0-50); Potassium 4.6 mmol/L (3.4-5.1); Sodium 138 mmol/L (137-145)
== END ==
PROVIDERS: PCP Family Medicine; Referring Provider Physician Assistant; Visit Provider Physician Assistant
DX: R59.1 Generalized enlarged lymph nodes (principal); M41.9 Scoliosis, unspecified
CPT/HCPCS: 36415; 71046; 80053; 85025

== ENCOUNTER → 2021-03-12 14:15 | Outpatient (CLI) | payer OTHER, SELFPAY ==
[2021-03-12 14:54] LABS: Calcium 10.4 mg/dL (8.4-10.2)
[2021-03-13 09:02] LABS: Parathyroid Hormone Int 61 pg/mL (15-65)
[2021-03-13 18:48] LABS: Ionized Calcium 5.4 mg/dL (4.5-5.6)
== END ==
PROVIDERS: PCP Family Medicine; Referring Provider Physician Assistant; Visit Provider Physician Assistant
DX: E83.52 Hypercalcemia (principal)
CPT/HCPCS: 36415; 82310; 82330; 83970

== ENCOUNTER → 2021-04-19 16:36 | Outpatient (CLI) | payer OTHER, SELFPAY ==
[2021-04-19 18:01] LABS: COVID19 -Nasal RAPID Negative (Negative); Influenza A - CEPHEID Flu A NEGATIVE (NEGATIVE); Influenza B - CEPHEID Flu B NEGATIVE (NEGATIVE)
== END ==
PROVIDERS: PCP Family Medicine; Referring Provider Physician Assistant; Visit Provider Physician Assistant
DX: Z20.822 Contact with and (suspected) exposure to COVID-19 (principal); R51.9 Headache, unspecified; R11.2 Nausea with vomiting, unspecified
CPT/HCPCS: 87502; 87635

== ENCOUNTER → 2021-05-28 10:44 | Outpatient (CLI) | payer OTHER, SELFPAY ==
--- NOTE | 2021-05-28 10:45 | DI.MG.S_ITS ---
BILATERAL DIGITAL SCREENING MAMMOGRAM 3D/2D WITH CAD: 05/28/2021 CLINICAL: Routine screening. Family history of breast cancer. Comparison is made to exams dated: 05/26/2020 mammogram, 04/06/2019 mammogram, and 03/29/2018 mammogram - [facility]. There are scattered fibroglandular elements in both breasts. Current study was also evaluated with a Computer Aided Detection (CAD) system. No significant masses, calcifications, or other findings are seen in either breast. There has been no significant interval change. IMPRESSION: NEGATIVE There is no mammographic evidence of malignancy. A 1 year screening mammogram is recommended. This exam was interpreted at Station ID: [id number]. NOTE: For mammograms, a report in lay terms will be sent to the patient. Approximately 15% of breast malignancies will not be visualized mammographically. In the management of a palpable breast mass, a negative mammogram must not discourage biopsy of a clinically suspicious lesion. Electronically Signed By: Rodolfo sandoval/jose g:05/28/2021 11:24:26 letter sent: Normal Exam ACR BI-RADS Category 1: Negative [id number]
== END ==
PROVIDERS: PCP Family Medicine; Referring Provider Family Medicine; Visit Provider Family Medicine
DX: Z12.31 Encounter for screening mammogram for malignant neoplasm of breast (principal); Z80.3 Family history of malignant neoplasm of breast
CPT/HCPCS: 77063; 77067

== ENCOUNTER → 2021-07-11 14:19 | Outpatient (CLI) | payer OTHER, SELFPAY ==
--- NOTE | 2021-07-11 14:20 | DI.RAD.S_ITS ---
PROCEDURE: XR THORACIC SPINE 3V INDICATIONS: thoracic pain TECHNIQUE: 3 views of the thoracic spine were acquired. COMPARISON: None. FINDINGS: Bones: No fractures or dislocations. No suspicious bony lesions. 12 pairs of ribs are noted, and appear intact where visualized. Convex right thoracolumbar scoliosis present. T9 wedge-shaped compression fracture with 5% anterior height loss and no retropulsed fracture fragment. Normal bone mineralization present. Soft tissues: No paravertebral stripe thickening. IMPRESSION: Wedge-shaped T9 compression fracture without retropulsed fracture fragment, uncertain age. Thoracolumbar dextroscoliosis Approved by: Denis Olmstead M.D. on 07/11/2021 at 14:29
== END ==
PROVIDERS: PCP Family Medicine; Referring Provider Nurse Practitioner Family; Visit Provider Nurse Practitioner Family
DX: M48.54XA Collapsed vertebra, not elsewhere classified, thoracic region, initial encounter for fracture (principal); M41.85 Other forms of scoliosis, thoracolumbar region; M54.6 Pain in thoracic spine
CPT/HCPCS: 72072

== ENCOUNTER → 2021-07-17 08:09 | Outpatient (CLI) | payer OTHER, SELFPAY ==
[2021-07-17 10:22] LABS: Cholesterol 221 mg/dL (140-199); HDL Cholesterol 62 mg/dL (40-60); LDL Cholesterol Calculated 140 mg/dL (<100); Triglycerides 96 mg/dL (35-150)
[2021-07-17 10:54] LABS: Thyroid Stimulating Hormone 1.48 uIU/mL (0.47-4.68)
== END ==
PROVIDERS: PCP Family Medicine; Referring Provider Family Medicine; Visit Provider Family Medicine
DX: E78.5 Hyperlipidemia, unspecified (principal)
CPT/HCPCS: 36415; 80061; 84443

== ENCOUNTER → 2021-07-20 11:14 | Outpatient (CLI) | payer OTHER, SELFPAY ==
--- NOTE | 2021-07-20 11:15 | DI.RAD.S_ITS ---
PROCEDURE: XR DEXA AXIAL SKELETON INDICATIONS: compression fracture COMPARISON: None. FINDINGS: This blank DEXA report has been sent in error by the PACS system. The correct and complete report will be forthcoming in 1-2 days. Thank you for your patience and understanding. Dictated by: Kinjal Meza MD, PhD on 07/20/2021 at 15:38 Approved by: Kinjal Meza MD, PhD on 07/20/2021 at 15:45
== END ==
PROVIDERS: PCP Family Medicine; Referring Provider Family Medicine; Visit Provider Family Medicine
DX: S22.000A Wedge compression fracture of unspecified thoracic vertebra, initial encounter for closed fracture (principal); M85.88 Other specified disorders of bone density and structure, other site; Z78.0 Asymptomatic menopausal state; Z82.62 Family history of osteoporosis
CPT/HCPCS: 77080

== ENCOUNTER → 2021-08-20 09:14 | Outpatient (CLI) | payer OTHER, SELFPAY ==
--- NOTE | 2021-08-20 09:17 | DI.RAD.S_ITS ---
PROCEDURE: XR THORACIC SPINE 3V INDICATIONS: compression fracture TECHNIQUE: 3 views of the thoracic spine were acquired. COMPARISON: [facility], CR, XR THORACIC SPINE 3V, 07/11/2021, 14:15. FINDINGS: Bones: Mild superior endplate depression again seen at the T9 vertebral body that does not appear significantly changed in extent when compared to the radiographs from 07/11/2021. No new compression fracture is seen. No suspicious bony lesions. 12 pairs of ribs are noted, and appear intact where visualized. Dextroconvex curvature of the thoracolumbar spine again seen. Soft tissues: No paravertebral stripe thickening. IMPRESSION: Unchanged appearance of an age-indeterminate mild T9 compression fracture when compared to the exam from 07/11/2021. No new fracture is seen. Dictated by: Grupo Belcher M.D. on 08/20/2021 at 9:00 Approved by: Grupo Belcher M.D. on 08/20/2021 at 9:10
[2021-08-20 10:47] LABS: BUN Creatinine Ratio 18.9 (6-22); Blood Urea Nitrogen 17 mg/dL (7-17); Calcium 10.6 mg/dL (8.4-10.2); Carbon Dioxide 32 mmol/L (22-32); Chloride 104 mmol/L (98-107); Estimated Glomerular Filt Rate > 60.0 mL/min (>60); Glucose 61 mg/dL (80-110); HEMOLYSIS < 15 (0-50); Potassium 4.3 mmol/L (3.4-5.1); Sodium 142 mmol/L (137-145)
== END ==
PROVIDERS: PCP Family Medicine; Referring Provider Family Medicine; Visit Provider Family Medicine
DX: S22.000A Wedge compression fracture of unspecified thoracic vertebra, initial encounter for closed fracture (principal); E83.52 Hypercalcemia; Z01.84 Encounter for antibody response examination; Z20.822 Contact with and (suspected) exposure to COVID-19
CPT/HCPCS: 36415; 72072; 80048; 86769

== ENCOUNTER → 2021-08-26 06:59 | Outpatient (CLI) | payer OTHER, SELFPAY | PROVIDERS: PCP Family Medicine; Referring Provider Family Medicine; Visit Provider Family Medicine | DX: E83.52 Hypercalcemia (principal) | CPT/HCPCS: 36415; 82306 ==

== ENCOUNTER → 2021-08-31 07:10 | Outpatient (CLI) | payer OTHER, SELFPAY ==
[2021-08-31 10:09] LABS: Calcium 24 Hour Urine 277 mg/day (100-300); Calcium Urine Random 12.9 mg/dL; Collection Time Urine 24 Hours; Total Volume Urine 2150 mL
== END ==
PROVIDERS: PCP Family Medicine; Referring Provider Family Medicine; Visit Provider Family Medicine
DX: E83.52 Hypercalcemia (principal)
CPT/HCPCS: 82340

== ENCOUNTER → 2022-04-20 15:19 | Outpatient (CLI) | payer OTHER, SELFPAY ==
--- NOTE | 2022-04-20 | DI.US.S_ITS ---
PROCEDURE: US ABDOMEN LIMITED INDICATIONS: RIGHT LOWER QUADRANT PAIN - RULE OUT HERNIA TECHNIQUE: Real-time focused scanning was performed of the abdomen, with image documentation. COMPARISON: [facility], , US ABDOMEN COMPLETE, 08/22/2018, 12:35. FINDINGS: There is a reducible fat containing right inguinal hernia, the neck of which measures approximately 8 mm in diameter. IMPRESSION: Reducible fat containing right inguinal hernia. Dictated by: Alice Sibley M.D. on 04/20/2022 at 16:40 Approved by: Alice Sibley M.D. on 04/20/2022 at 16:41
--- NOTE | 2022-04-20 15:21 | DI.US.S_ITS ---
PROCEDURE: US PELVIC COMPLETE INDICATIONS: RIGHT LOWER QUADRANT PAIN TECHNIQUE: Real-time scanning was performed of the pelvic organs, with image documentation. Additional endovaginal scanning was necessary due to incomplete visualization of the adnexal and endometrial structures by transabdominal scanning. COMPARISON: [facility], US, US PELVIC COMPLETE, 05/24/2018, 10:53. FINDINGS: Uterus: Uterus is retroverted and postmenopausal in size at 4.5 x 2.3 x 2.7 cm. The myometrium is heterogeneous. The endometrium measures 6.6 mm combined thickness. There is a small amount of fluid and debris in the endometrial canal. An incidental small left anterior intramural fibroid is noted measuring 1.1 x 0.9 x 0.8 cm. Ovaries: The right ovary measures 1.3 x 0.8 x 1.1 cm, with a calculated ovarian volume of 0.6 cc. The left ovary measures 2.2 x 1.0 x 1.0 cm, with a calculated ovarian volume of 1.2 cc. No adnexal masses are seen. Other: No pathologic free abdominal or pelvic fluid. IMPRESSION: 1. The endometrium is thickened for a postmenopausal female, measuring 6.6 mm. Recommend consultation for endometrial biopsy for further evaluation. 2. No other significant findings. We strive to produce accurate, complete, and clear reports of imaging services. To assist us in improving patient care, this report was composed using standard report templates and voice recognition software. Therefore, it may contain abnormal punctuation, insertions and/or omissions. Occasional wrong-word or sound-alike substitutions may occur. Though we review the report and make efforts to correct it, we do recommend that the report be read carefully in proper context to recognize any text inaccuracies. Dictated by: Pankaj Kelly M.D. on 04/21/2022 at 7:55 Approved by: Pankaj Kelly M.D. on 04/21/2022 at 8:45
== END ==
PROVIDERS: PCP Family Medicine; Referring Provider Physician Assistant; Visit Provider Physician Assistant
DX: K40.90 Unilateral inguinal hernia, without obstruction or gangrene, not specified as recurrent (principal); R10.31 Right lower quadrant pain; R93.89 Abnormal findings on diagnostic imaging of other specified body structures
CPT/HCPCS: 76705; 76830; 76856

== ENCOUNTER → 2022-07-20 09:17 | Outpatient (CLI) | payer OTHER, SELFPAY ==
--- NOTE | 2022-07-20 | DI.MG.S_ITS ---
BILATERAL DIGITAL SCREENING MAMMOGRAM 3D/2D WITH CAD: 07/20/2022 CLINICAL: Routine screening. Family history of breast cancer. Comparison is made to exams dated: 05/28/2021 mammogram, 05/26/2020 mammogram, and 04/06/2019 mammogram - [facility]. There are scattered areas of fibroglandular density in both breasts (category b / 25%-50% glandular tissue). Current study was also evaluated with a Computer Aided Detection (CAD) system. No significant masses, calcifications, or other findings are seen in either breast. There has been no significant interval change. IMPRESSION: NEGATIVE There is no mammographic evidence of malignancy. A 1 year screening mammogram is recommended. Based on the Tyrer Cuzick model (a risk assessment model) the patient's lifetime risk is 7.2% and her 10 year risk is 4.9%. According to the ACR, ACS, and NCCN guidelines, an annual breast MRI exam along with mammogram is recommended if the patient's lifetime risk is 20% or greater. This exam was interpreted at Station ID: [id number]. NOTE: For mammograms, a report in lay terms will be sent to the patient. Approximately 15% of breast malignancies will not be visualized mammographically. In the management of a palpable breast mass, a negative mammogram must not discourage biopsy of a clinically suspicious lesion. Electronically Signed By: Alice rehman/jose g:07/20/2022 13:20:53 letter sent: Normal Exam ACR BI-RADS Category 1: Negative 3341F
== END ==
PROVIDERS: PCP Family Medicine; Referring Provider Family Medicine; Visit Provider Family Medicine
DX: Z12.31 Encounter for screening mammogram for malignant neoplasm of breast (principal); Z80.3 Family history of malignant neoplasm of breast
CPT/HCPCS: 77063; 77067

== ENCOUNTER → 2022-09-07 07:03 | Outpatient (CLI) | payer OTHER, SELFPAY ==
[2022-09-07 08:23] LABS: Add Manual Diff / Slide Review NO; Basophils Absolute Auto 0 /uL (0-100); Basophils Percent Auto 0.8 % (0-2); Eosinophils Absolute Auto 200 /uL (0-450); Eosinophils Percent Auto 3.5 % (2-4); Hematocrit 41.4 % (36-46); Hemoglobin 14.1 g/dL (12.0-16.0); Lymphocytes Absolute Auto 2100 /uL (1100-4500); Lymphocytes Percent Auto 36.4 % (25-40); Mean Corpuscular HGB Conc 33.9 % (30-36); Mean Corpuscular Hemoglobin 31.7 PG (26-34); Mean Corpuscular Volume 93.4 fL (80-100); Monocytes Absolute Auto 500 /uL (0-900); Neutrophils Absolute Auto 2800 /uL (1500-7000); Neutrophils Percent Auto 50.3 % (50-75); Platelet Count 279 X10^3/uL (150-400); Red Blood Cell Count 4.44 X10^6/uL (4.0-5.2); Red Cell Distribution Width 12.9 % (11.6-14.8); White Blood Cell Count 5.7 X10^3/uL (4.5-11.0)
[2022-09-07 08:39] LABS: Alanine Aminotransferase 17 IU/L (<35); Albumin 4.1 g/dL (3.5-5.0); Albumin Globulin Ratio 1.3 (1.0-2.8); Alkaline Phosphatase 69 U/L (38-126); Aspartate Aminotransferase 23 IU/L (14-36); BUN Creatinine Ratio 22.1 (6-22); Bilirubin Total 0.5 mg/dL (0.2-1.3); Blood Urea Nitrogen 17 mg/dL (7-17); Calcium 9.5 mg/dL (8.4-10.2); Carbon Dioxide 28 mmol/L (22-32); Chloride 103 mmol/L (98-107); Cholesterol 215 mg/dL (140-199); Estimated Glomerular Filt Rate > 60 mL/min (>60); Globulin 3.1 g/dL (1.7-4.1); Glucose 83 mg/dL (80-110); HDL Cholesterol 53 mg/dL (40-60); HEMOLYSIS < 15 (0-50); LDL Cholesterol Calculated 135 mg/dL (<100); Potassium 3.8 mmol/L (3.4-5.1); Sodium 137 mmol/L (137-145); Total Protein 7.2 g/dL (6.3-8.2); Triglycerides 137 mg/dL (35-150)
[2022-09-07 09:26] LABS: TSH w/ Reflex to FT4 3.13 uIU/mL (0.47-4.68)
== END ==
PROVIDERS: Family Provider Family Medicine; PCP Family Medicine; Referring Provider Family Medicine; Visit Provider Family Medicine
DX: E83.52 Hypercalcemia (principal); Z13.6 Encounter for screening for cardiovascular disorders; Z13.1 Encounter for screening for diabetes mellitus
CPT/HCPCS: 36415; 80053; 80061; 84443; 85025

== ENCOUNTER → 2022-09-14 07:27 | Outpatient (CLI) | payer OTHER, SELFPAY ==
--- NOTE | 2022-09-14 07:29 | DI.RAD.S_ITS ---
PROCEDURE: XR FINGER LT MIN 2V INDICATIONS: left index finger pain TECHNIQUE: AP hand, 2 views of the 2nd finger(s) acquired. COMPARISON: None. FINDINGS: Bones: Small avulsion fracture along the dorsal surface of the base of the 2nd distal phalanx. Normal bone mineralization. Nose location. Soft tissues: No suspicious soft tissue calcifications. IMPRESSION: Small avulsion fracture, base of the 2nd distal phalanx Approved by: Denis Olmstead M.D. on 09/14/2022 at 13:45
== END ==
PROVIDERS: Family Provider Family Medicine; PCP Family Medicine; Referring Provider Physician Assistant; Visit Provider Physician Assistant
DX: S62.631A Displaced fracture of distal phalanx of left index finger, initial encounter for closed fracture (principal); M79.645 Pain in left finger(s); X58.XXXA Exposure to other specified factors, initial encounter
CPT/HCPCS: 73140

== ENCOUNTER 2022-10-04 09:00 | Outpatient (RCR) | payer OTHER, SELFPAY ==
--- NOTE | 2022-08-24 15:18 | PT.OIE ---
Current Diagnoses Unspecified urinary incontinence (08/24/22) Past Medical History (Last Reviewed 05/03/22 @ 08:55 by Yeison Fortune MD) Arthritis of right knee Chicken pox (1956) Chronic back pain (1999) Foot pain (1989) Fractures (2007) Hepatitis A (1956) Herpes (1979) Low back pain Measles (1957) Mumps (1957) Osteopenia (2004) Pelvic pain Postmenopausal Skin cancer (2013) Tinnitus (2009) Past Surgical History (Last Reviewed 05/03/22 @ 08:55 by Yeison Fortune MD) S/P D&C (status post dilation and curettage) (05/11/18) Status post tubal ligation (1986) Visit Care Team Role Provider Type Wei Luna MD Attending Provider Physician Family Provider Primary Care Provider Referring Provider Specialty: Family Practice Address: [address] [place] [address] Email: [email or web address] Physical Therapy Initial Evaluation PT-OP-A Visit Information Start: 08/23/22 15:45 Freq: Status: Active Protocol: Document 08/24/22 09:05 AMB (Rec: 08/24/22 09:48 AMB [id number]) Out-Patient Physical Therapy Visit Information Visit Information Visit Type Initial Evaluation Visit Start Time 09:00 Visit Stop Time 09:45 Total Visit Minutes 45 Visit Number 1 PT-OP-B Current Condition Start: 08/23/22 15:45 Freq: Status: Active Protocol: Document 08/24/22 09:05 AMB (Rec: 08/24/22 09:48 AMB [id number]) Current Condition History of Current Condition Onset Date worse in the last 2 years Current Complaints urinary leaking History of Current Condition Leaking with walking, especially on hills when walking vigorously about 3 miles. R sided hernia. Does drink a lot of diet Coke. PT-OP-C Subjective Start: 08/23/22 15:45 Freq: Status: Active Protocol: Document 08/24/22 09:00 AMB (Rec: 08/25/22 15:18 AMB [id number]) Patient Questionnaires Pelvic Pain and Urgency/Frequency Patient Symptom Scale Pelvic Pain Score 8 PT-OP-I Pelvic Floor Start: 03/27/23 15:45 Freq: Status: Active Protocol: Document 08/24/22 09:00 AMB (Rec: 08/25/22 15:18 AMB [id number]) Pelvic Floor Assessment Urine Leakage Size Medium Leakage Cause Exercise Other Leakage Causes leaking with vigorous walking in the afernoon Leaks Per Day 1 Voiding Frequency 10/day Nocturia 1 Urine Pad Type Maxi Pad Pelvic Clock Pelvic Clock 12-3 Atrophy,Tightness Pelvic Clock 3-6 Atrophy,Tightness Pelvic Clock 6-9 Atrophy,Tightness Pelvic Clock 9-12 Atrophy,Tightness Prolapse Prolapse Comments no prolapse visualized Contraction Ability Manual Muscle Testing Left 3 Manual Muscle Testing Right 3 Manual Muscle Testing Anterior 2 Manual Muscle Testing Posterior 3 Muscle Endurance (Seconds) 5 Number of Quick Contractions In 10 4 Seconds PT-OP-T Assessment and Plan Start: 08/23/22 15:45 Freq: Status: Active Protocol: Document 08/24/22 09:00 AMB (Rec: 08/25/22 15:18 AMB [id number]) Physical Therapy Assessment Rehab Potential Rehabilitation Potential Good Evaluation Complexity Number of Personal Factors/Comorbidities 0 Number of Body Systems Impaired 1-2 Clinical Presentation at Evaluation Stable Impairments Impairments Functional Activities,Strength Goals Pelvic floor strength Short Term Goal (STG) Pat will improve her pelvic floor strength so that she can contract her pelvic floor for 10 seconds in standing. STG Duration 5 weeks Shipping And Receiving Coordinator Goal (LTG) Pat will show improved pelvic floor strength LTG Duration 10 weeks One Impairment Continence Short Term Goal (STG) Pat will walk for 1 mile over smooth terrain without leaking . STG Duration 5 weeks Shipping And Receiving Coordinator Goal (LTG) Pat will walk for 3 miles over hilly terrain without leaking . LTG Duration 10 weeks Assessment Summary Assessment Pat attends physical therapy with stress urinary incontinence specifically with walking 3 miles vigorously in the afternoon. She also has a history of dyspareunia that started about 10 years ago. She does have a tendency to drink Diet Coke and is wondering if that could worsen the incontinence. Pt did have atrophy and tenderness vaginally and had 3/5 strength generally in the pelvic floor . She will benefit from physical therapy to improve her pelvic floor strength so that she is better able to walk strenously without leaking urine. Physical Therapy Plan Frequency and Duration Frequency of Treatment 1x/Week Duration of treatment (weeks) 10 Plan of Care Start Date 08/24/22 Plan of Care End Date 11/02/22 Therapeutic Interventions Therapeutic Interventions Home Exercise Program,Manual Therapy,Neuromuscular Re- education,Patient/Caregiver Education,Self-Care/Home Management,Therapeutic Activities,Therapeutic Exercises Modalities Biofeedback,Electric Stimulation Next Visit Focus/Plan Next Note Type Treatment Note Next Visit Plan consider sEMG, follow up on dilators
--- NOTE | 2022-08-24 15:19 | PT.OPPOC ---
Physical, Occupational & Speech Therapy At [facility] Current Diagnoses Unspecified urinary incontinence (08/24/22) Visit Care Team Role Provider Type Wei Luna MD Attending Provider Physician Family Provider Primary Care Provider Referring Provider Specialty: Family Practice Address: [address] [place] [address], [id number] Email: [email or web address] Plan Of Care PT-OP-T Assessment and Plan Start: 08/23/22 15:45 Freq: Status: Active Protocol: Document 08/24/22 09:00 AMB (Rec: 08/25/22 15:18 AMB [id number]) Physical Therapy Assessment Rehab Potential Rehabilitation Potential Good Evaluation Complexity Number of Personal Factors/Comorbidities 0 Number of Body Systems Impaired 1-2 Clinical Presentation at Evaluation Stable Impairments Impairments Functional Activities,Strength Goals Pelvic floor strength Short Term Goal (STG) Pat will improve her pelvic floor strength so that she can contract her pelvic floor for 10 seconds in standing. STG Duration 5 weeks Warp Trucker Goal (LTG) Pat will show improved pelvic floor strength LTG Duration 10 weeks One Impairment Continence Short Term Goal (STG) Pat will walk for 1 mile over smooth terrain without leaking . STG Duration 5 weeks Warp Trucker Goal (LTG) Pat will walk for 3 miles over hilly terrain without leaking . LTG Duration 10 weeks Assessment Summary Assessment Pat attends physical therapy with stress urinary incontinence specifically with walking 3 miles vigorously in the afternoon. She also has a history of dyspareunia that started about 10 years ago. She does have a tendency to drink Diet Coke and is wondering if that could worsen the incontinence. Pt did have atrophy and tenderness vaginally and had 3/5 strength generally in the pelvic floor . She will benefit from physical therapy to improve her pelvic floor strength so that she is better able to walk strenously without leaking urine. Physical Therapy Plan Frequency and Duration Frequency of Treatment 1x/Week Duration of treatment (weeks) 10 Plan of Care Start Date 08/24/22 Plan of Care End Date 11/02/22 Therapeutic Interventions Therapeutic Interventions Home Exercise Program,Manual Therapy,Neuromuscular Re- education,Patient/Caregiver Education,Self-Care/Home Management,Therapeutic Activities,Therapeutic Exercises Modalities Biofeedback,Electric Stimulation Next Visit Focus/Plan Next Note Type Treatment Note Next Visit Plan consider sEMG, follow up on dilators Plan of Care Dates Plan of Care Start Date 08/24/22 Plan of Care End Date 11/02/22 Electronically Signed by: Shabnam Ruby, PT 08/25/22 2060 If you are in agreement with this Plan of Care, please return a signed and dated copy. I have reviewed this Plan of Care and certify that the skilled therapy services above are required to meet the patient?s needs. Physician Signature Date Printed Name and Credentials Clinical Instructor Signature Printed Name and Credentials
--- NOTE | 2022-09-27 12:46 | PT.OTN ---
Current Diagnoses Unspecified urinary incontinence (09/27/22) Physical Therapy Treatment Note PT-OP-A Visit Information Start: 08/23/22 15:45 Freq: Status: Active Protocol: Document 09/27/22 11:59 AMB (Rec: 09/27/22 12:43 AMB [id number]) Out-Patient Physical Therapy Visit Information Visit Information Visit Type Treatment Note Visit Start Time 12:00 Visit Stop Time 12:45 Total Visit Minutes 45 Visit Number 2 PT-OP-B Current Condition Start: 08/23/22 15:45 Freq: Status: Active Protocol: Document 08/24/22 09:05 AMB (Rec: 08/24/22 09:48 AMB [id number]) Current Condition History of Current Condition Onset Date worse in the last 2 years Current Complaints urinary leaking History of Current Condition Leaking with walking, especially on hills when walking vigorously about 3 miles. R sided hernia. Does drink a lot of diet Coke. PT-OP-C Subjective Start: 08/23/22 15:45 Freq: Status: Active Protocol: Document 09/27/22 11:59 AMB (Rec: 09/27/22 12:43 AMB [id number]) OP-PT Subjective Patient Comments Patient Comments Pt reports improvement when avoiding caffeinated beverages . Does think she is doing better with exercises but not sure if she's feeling the pelvic floor relax. PT-OP-I Pelvic Floor Start: 08/23/22 15:45 Freq: Status: Active Protocol: Document 08/24/22 09:00 AMB (Rec: 08/25/22 15:18 AMB [id number]) Pelvic Floor Assessment Urine Leakage Size Medium Leakage Cause Exercise Other Leakage Causes leaking with vigorous walking in the afernoon Leaks Per Day 1 Voiding Frequency 10/day Nocturia 1 Urine Pad Type Maxi Pad Pelvic Clock Pelvic Clock 12-3 Atrophy,Tightness Pelvic Clock 3-6 Atrophy,Tightness Pelvic Clock 6-9 Atrophy,Tightness Pelvic Clock 9-12 Atrophy,Tightness Prolapse Prolapse Comments no prolapse visualized Contraction Ability Manual Muscle Testing Left 3 Manual Muscle Testing Right 3 Manual Muscle Testing Anterior 2 Manual Muscle Testing Posterior 3 Muscle Endurance (Seconds) 5 Number of Quick Contractions In 10 4 Seconds PT-OP-Q Treatments Start: 08/23/22 15:45 Freq: Status: Active Protocol: Document 09/27/22 11:59 AMB (Rec: 09/27/22 12:43 AMB [id number]) Therapeutic Exercises Sitting Exercises roll in roll out Sitting Exercise Name with yellow band Reps/Minutes 10 ea Comments cue breath Neuro Re-Education Treatment Other Activities sEMG Comments see assessment for numbers, actually did well maintaining contraction for full 10 seconds, could improve strength a bit more but overall doing well. PT-OP-T Assessment and Plan Start: 08/23/22 15:45 Freq: Status: Active Protocol: Document 09/27/22 11:59 AMB (Rec: 09/27/22 12:43 AMB [id number]) Physical Therapy Assessment Goals Pelvic floor strength Short Term Goal (STG) Pat will improve her pelvic floor strength so that she can contract her pelvic floor for 10 seconds in standing. STG Duration 5 weeks Residential Goal (LTG) Pat will show improved pelvic floor strength LTG Duration 10 weeks One Impairment Continence Short Term Goal (STG) Pat will walk for 1 mile over smooth terrain without leaking . STG Duration 5 weeks Residential Goal (LTG) Pat will walk for 3 miles over hilly terrain without leaking . LTG Duration 10 weeks Assessment Summary Assessment 2.1 for baseline, avg 10, max 18. pt reports difficulty feeling letting go but can feel a contraction. Pt finds she has very small leaks when not drinking caffeine. Physical Therapy Plan Frequency and Duration Frequency of Treatment 1x/Week Duration of treatment (weeks) 10 Plan of Care Start Date 08/24/22 Plan of Care End Date 11/02/22 Therapeutic Interventions Therapeutic Interventions Home Exercise Program,Manual Therapy,Neuromuscular Re- education,Patient/Caregiver Education,Self-Care/Home Management,Therapeutic Activities,Therapeutic Exercises Modalities Biofeedback,Electric Stimulation Next Visit Focus/Plan Next Note Type Treatment Note Next Visit Plan consider sEMG, follow up on dilators
--- NOTE | 2022-10-04 09:48 | PT.OTN ---
Current Diagnoses Unspecified urinary incontinence (10/04/22) Physical Therapy Treatment Note PT-OP-A Visit Information Start: 08/23/22 15:45 Freq: Status: Active Protocol: Document 10/04/22 09:08 AMB (Rec: 10/04/22 09:39 AMB [id number]) Out-Patient Physical Therapy Visit Information Visit Information Visit Type Treatment Note Visit Start Time 09:00 Visit Stop Time 09:45 Total Visit Minutes 45 Visit Number 3 PT-OP-B Current Condition Start: 08/23/22 15:45 Freq: Status: Active Protocol: Document 08/24/22 09:05 AMB (Rec: 08/24/22 09:48 AMB [id number]) Current Condition History of Current Condition Onset Date worse in the last 2 years Current Complaints urinary leaking History of Current Condition Leaking with walking, especially on hills when walking vigorously about 3 miles. R sided hernia. Does drink a lot of diet Coke. PT-OP-C Subjective Start: 08/23/22 15:45 Freq: Status: Active Protocol: Document 10/04/22 09:08 AMB (Rec: 10/04/22 09:39 AMB [id number]) OP-PT Subjective Patient Comments Patient Comments Pt has been doing roll in roll out in supine. Does have some knee pain at atimes with sit to stand. PT-OP-I Pelvic Floor Start: 08/23/22 15:45 Freq: Status: Active Protocol: Document 08/24/22 09:00 AMB (Rec: 08/25/22 15:18 AMB [id number]) Pelvic Floor Assessment Urine Leakage Size Medium Leakage Cause Exercise Other Leakage Causes leaking with vigorous walking in the afernoon Leaks Per Day 1 Voiding Frequency 10/day Nocturia 1 Urine Pad Type Maxi Pad Pelvic Clock Pelvic Clock 12-3 Atrophy,Tightness Pelvic Clock 3-6 Atrophy,Tightness Pelvic Clock 6-9 Atrophy,Tightness Pelvic Clock 9-12 Atrophy,Tightness Prolapse Prolapse Comments no prolapse visualized Contraction Ability Manual Muscle Testing Left 3 Manual Muscle Testing Right 3 Manual Muscle Testing Anterior 2 Manual Muscle Testing Posterior 3 Muscle Endurance (Seconds) 5 Number of Quick Contractions In 10 4 Seconds PT-OP-Q Treatments Start: 08/23/22 15:45 Freq: Status: Active Protocol: Document 10/04/22 09:08 AMB (Rec: 10/04/22 09:39 AMB [id number]) Therapeutic Exercises Supine Exercises SLR Supine Exercise Name with pelvic floor Reps/Minutes 2x10 bridge Supine Exercise Name contract pelvic floor muscles Reps/Minutes 2x10 Standing Exercises t ball Standing Exercise Name marching on 65cm ball Comments with cues for breath and pf sit to stand Standing Exercise Name with pelvic floor contraction Reps/Minutes 10 PT-OP-T Assessment and Plan Start: 08/23/22 15:45 Freq: Status: Active Protocol: Document 10/04/22 09:08 AMB (Rec: 10/04/22 09:39 AMB [id number]) Physical Therapy Assessment Goals Pelvic floor strength Short Term Goal (STG) Pat will improve her pelvic floor strength so that she can contract her pelvic floor for 10 seconds in standing. STG Duration 5 weeks Supervisor [employer] Goal (LTG) Pat will show improved pelvic floor strength LTG Duration 10 weeks One Impairment Continence Short Term Goal (STG) Pat will walk for 1 mile over smooth terrain without leaking . STG Duration 5 weeks Supervisor [employer] Goal (LTG) Pat will walk for 3 miles over hilly terrain without leaking . LTG Duration 10 weeks Assessment Summary Assessment Pt continues to notice small leaks, has been doing exercises. Encouraged in general strengthening program, incorporating pelvic floor into strengthening program. Pt does have bands, weights, balls at home so could do a program. Physical Therapy Plan Frequency and Duration Frequency of Treatment 1x/Week Duration of treatment (weeks) 10 Plan of Care Start Date 08/24/22 Plan of Care End Date 11/02/22 Therapeutic Interventions Therapeutic Interventions Home Exercise Program,Manual Therapy,Neuromuscular Re- education,Patient/Caregiver Education,Self-Care/Home Management,Therapeutic Activities,Therapeutic Exercises Modalities Biofeedback,Electric Stimulation Next Visit Focus/Plan Next Note Type Treatment Note Next Visit Plan consider sEMG, follow up on dilators--- R knee pain aware of exercise prescription
--- NOTE | 2022-12-29 13:21 | PT.OPDS ---
Current Diagnoses Unspecified urinary incontinence (10/04/22) Visit Care Team Role Provider Type Wei Luna MD Attending Provider Physician Family Provider Primary Care Provider Referring Provider Specialty: Family Practice Address: [address] [place] [address], [facility] Email: [email or web address] Visit Number Visit Number 3 Discharge Summary PT-OP-B Current Condition Start: 08/23/22 15:45 Freq: Status: Active Protocol: Document 08/24/22 09:05 AMB (Rec: 08/24/22 09:48 AMB [id number]) Current Condition History of Current Condition Onset Date worse in the last 2 years Current Complaints urinary leaking History of Current Condition Leaking with walking, especially on hills when walking vigorously about 3 miles. R sided hernia. Does drink a lot of diet Coke. PT-OP-C Subjective Start: 08/23/22 15:45 Freq: Status: Active Protocol: Document 10/04/22 09:08 AMB (Rec: 10/04/22 09:39 AMB [id number]) OP-PT Subjective Patient Comments Patient Comments Pt has been doing roll in roll out in supine. Does have some knee pain at atimes with sit to stand. PT-OP-I Pelvic Floor Start: 08/23/22 15:45 Freq: Status: Active Protocol: Document 08/24/22 09:00 AMB (Rec: 08/25/22 15:18 AMB [id number]) Pelvic Floor Assessment Urine Leakage Size Medium Leakage Cause Exercise Other Leakage Causes leaking with vigorous walking in the afernoon Leaks Per Day 1 Voiding Frequency 10/day Nocturia 1 Urine Pad Type Maxi Pad Pelvic Clock Pelvic Clock 12-3 Atrophy,Tightness Pelvic Clock 3-6 Atrophy,Tightness Pelvic Clock 6-9 Atrophy,Tightness Pelvic Clock 9-12 Atrophy,Tightness Prolapse Prolapse Comments no prolapse visualized Contraction Ability Manual Muscle Testing Left 3 Manual Muscle Testing Right 3 Manual Muscle Testing Anterior 2 Manual Muscle Testing Posterior 3 Muscle Endurance (Seconds) 5 Number of Quick Contractions In 10 4 Seconds PT-OP-T Assessment and Plan Start: 08/23/22 15:45 Freq: Status: Active Protocol: Document 12/29/22 13:16 AMB (Rec: 12/29/22 13:21 AMB [id number]) Physical Therapy Assessment Goals Pelvic floor strength Short Term Goal (STG) Pat will improve her pelvic floor strength so that she can contract her pelvic floor for 10 seconds in standing. STG Duration 5 weeks Picc Nurse Goal (LTG) Pat will show improved pelvic floor strength LTG Duration 10 weeks One Impairment Continence Short Term Goal (STG) Pat will walk for 1 mile over smooth terrain without leaking . STG Duration 5 weeks Halfway Goal (LTG) Pat will walk for 3 miles over hilly terrain without leaking . LTG Duration 10 weeks Assessment Summary Assessment At last visit Pt continues to notice small leaks, has been doing exercises. Encouraged in general strengthening program, incorporating pelvic floor into strengthening program. Pt does have bands, weights, balls at home so could do a program. Pt ready for discharge, so discharging to [facility]. Physical Therapy Plan Therapeutic Interventions Therapeutic Interventions Home Exercise Program,Manual Therapy,Neuromuscular Re- education,Patient/Caregiver Education,Self-Care/Home Management,Therapeutic Activities,Therapeutic Exercises Modalities Biofeedback,Electric Stimulation
== END 2022-12-30 13:59 | disposition home or self-care (01) ==
LOC: PHYS 09:00
PROVIDERS: Family Provider Family Medicine; PCP Family Medicine; Referring Provider Family Medicine; Visit Provider Family Medicine
DX: R32 Unspecified urinary incontinence (principal)
CPT/HCPCS: 97110; 97112; 97161

== ENCOUNTER → 2022-11-02 13:59 | Outpatient (CLI) | payer OTHER, SELFPAY ==
--- NOTE | 2022-11-02 14:01 | DI.RAD.S_ITS ---
PROCEDURE: XR KNEE RT 3V INDICATIONS: Knee pain w/movement TECHNIQUE: 3 views of the knee were acquired. COMPARISON: [facility], , XR KNEE RT 3V, 01/28/2020, 8:11. FINDINGS: Bones: No acute fractures or dislocations. No suspicious bony lesions. Tricompartmental degenerative changes of the right knee. Soft tissues: Small suprapatellar significant joint effusion. No suspicious soft tissue calcifications. IMPRESSION: Right knee without acute fracture or dislocation. Tricompartmental osteoarthrosis. Small suprapatellar joint effusion. Dictated by: Nehemiah Parra M.D. on 11/02/2022 at 16:59 Approved by: Nehemiah Parra M.D. on 11/02/2022 at 17:01
== END ==
PROVIDERS: Family Provider Family Medicine; PCP Family Medicine; Referring Provider Physician Assistant; Visit Provider Physician Assistant
DX: M17.11 Unilateral primary osteoarthritis, right knee (principal); M25.561 Pain in right knee; M25.461 Effusion, right knee
CPT/HCPCS: 73562

== ENCOUNTER → 2023-03-31 14:14 | Outpatient (CLI) | payer OTHER, SELFPAY ==
[2023-03-31 15:40] LABS: BUN Creatinine Ratio 23.1 (6-22); Blood Urea Nitrogen 18 mg/dL (7-17); Calcium 10.6 mg/dL (8.4-10.2); Carbon Dioxide 30 mmol/L (22-32); Chloride 103 mmol/L (98-107); Estimated Glomerular Filt Rate > 60 mL/min (>60); Glucose 103 mg/dL (80-110); HEMOLYSIS 16 (0-50); Potassium 4.9 mmol/L (3.4-5.1); Sodium 138 mmol/L (137-145)
== END ==
PROVIDERS: Family Provider Family Medicine; PCP Family Medicine; Referring Provider Physician Assistant; Visit Provider Physician Assistant
DX: Z01.812 Encounter for preprocedural laboratory examination (principal)
CPT/HCPCS: 36415; 80048

== ENCOUNTER → 2023-04-02 10:15 | Outpatient (CLI) | payer OTHER, SELFPAY ==
--- NOTE | 2023-04-02 10:16 | DI.CT.S_ITS ---
PROCEDURE: CT ABDOMEN PELVIS W CON INDICATIONS: Abdominal pain,bloating, change in stool TECHNIQUE: After the administration of oral and intravenous contrast, axial sections were acquired from the lung bases to the pubic symphysis. Coronal and sagittal reformats were performed. For radiation dose reduction, the following was used: automated exposure control, adjustment of mA and/or kV according to patient size. COMPARISON:[facility], CT, CT ABDOMEN PELVIS W CON, 10/11/2018, 14:13. FINDINGS: Image quality: Excellent. Lung bases: Unremarkable. Heart: No significant findings. ABDOMEN: Liver: Unremarkable. Gallbladder: Unremarkable. Biliary ducts: Unremarkable. Pancreas: Unremarkable. Spleen: Unremarkable. Adrenal Glands: Unremarkable. Kidneys and Ureters: Unremarkable. Stomach and Bowel: The stomach and small bowel demonstrate normal caliber and wall thickness. The appendix is thin walled and gas filled. The ascending, transverse, and descending colon demonstrate normal caliber and wall thickness. The sigmoid demonstrates overall normal caliber and wall thickness. However, within the distal sigmoid, there is a questionable stricture (series 2/image 86 and series 5/image 42. The distal sigmoid in the rectosigmoid is dilated and gas-filled. Peritoneum: No abnormal intraperitoneal fluid. No free air. Ventral Wall: No hernia. Abdominal Nodes: No retroperitoneal or mesenteric adenopathy by size criteria. Vessels: Aorta and inferior vena cava are normal in size. PELVIS: Pelvic Organs: Unremarkable. Bladder: Unremarkable. Pelvic Nodes: No enlarged lymph nodes. Miscellaneous: There are moderate-sized bilateral fat containing inguinal hernias. Bones: Unremarkable. IMPRESSION: 1. Dilated gas-filled rectosigmoid with questionable upstream stricture of the distal sigmoid colon. However, this may represent simple peristalsis. Direct visualization of this region is recommended to further characterize this finding and exclude neoplasm. 2. No other acute intra-abdominal findings. Normal appendix. Dictated by: Alice Sibley M.D. on 04/03/2023 at 11:52 Approved by: Alice Sibley M.D. on 04/03/2023 at 11:59
== END ==
PROVIDERS: Family Provider Family Medicine; PCP Family Medicine; Referring Provider Physician Assistant; Visit Provider Physician Assistant
DX: R19.5 Other fecal abnormalities (principal); R10.9 Unspecified abdominal pain; R68.81 Early satiety; K40.90 Unilateral inguinal hernia, without obstruction or gangrene, not specified as recurrent
CPT/HCPCS: 74177; Q9967

== ENCOUNTER → 2023-04-07 12:16 | Outpatient (CLI) | payer OTHER, SELFPAY ==
--- NOTE | 2023-04-07 12:18 | DI.US.S_ITS ---
PROCEDURE: US PELVIC COMPLETE INDICATIONS: FOLLOW UP ABNORMAL ULTRASOUND TECHNIQUE: Real-time scanning was performed of the pelvic organs, with image documentation. Additional endovaginal scanning was necessary due to incomplete visualization of the adnexal and endometrial structures by transabdominal scanning. COMPARISON: [facility], US, US PELVIC COMPLETE, 04/20/2022, 15:43. FINDINGS: Uterus: Uterus is retroverted and normal in size at 4.2 x 3.2 x 2.3 cm. The myometrium is heterogeneous The endometrium measures 2 mm combined thickness. There is a left anterior intramural fibroid measuring 0.7 x 0.7 x 0.6 cm. Ovaries: Ovaries are not visualized secondary to overlying bowel. Other: No pathologic free abdominal or pelvic fluid. IMPRESSION: 1. 0.7 cm uterine fibroid. 2. Normal appearing uterus and endometrial thickness for the patient's age. 3. Ovaries not visualized secondary to overlying bowel gas. We strive to produce accurate, complete, and clear reports of imaging services. To assist us in improving patient care, this report was composed using standard report templates and voice recognition software. Therefore, it may contain abnormal punctuation, insertions and/or omissions. Occasional wrong-word or sound-alike substitutions may occur. Though we review the report and make efforts to correct it, we do recommend that the report be read carefully in proper context to recognize any text inaccuracies. Dictated by: Ady Condno M.D. on 04/07/2023 at 14:25 Approved by: Ady Condon M.D. on 04/07/2023 at 14:29
== END ==
PROVIDERS: Family Provider Family Medicine; PCP Family Medicine; Referring Provider Obstetrics & Gynecology; Visit Provider Obstetrics & Gynecology
DX: D25.1 Intramural leiomyoma of uterus (principal); R93.89 Abnormal findings on diagnostic imaging of other specified body structures; R93.3 Abnormal findings on diagnostic imaging of other parts of digestive tract
CPT/HCPCS: 76830; 76856; 99213

== ENCOUNTER 2023-04-15 13:13 | Day surgery (SDC) | payer OTHER, SELFPAY ==
[2023-04-15 13:28] VITALS: BP 166/88; PULSE 90; RESP 17; TEMP 37.1; O2SAT 99; BMI 25.0
--- NOTE | 2023-04-15 13:54 | PM.PREOP ---
Pre-operative Note Interval Note History & Physical reviewed/Exam performed by Physician: Yes Changes to H&P: No
[2023-04-15] MEDS: LACTATED RINGERS 1,000 ML 120 ML IV (14:00)
--- NOTE | 2023-04-15 14:10 | P.OP.COLON_ITS ---
Operative Date/Time/Diagnoses Date of procedure: 04/15/23 Time of procedure: 14:10 Pre-op diagnosis: Altered bowel function Procedure & Clinicians Study performed: Diagnostic Colonoscopy Same procedure as scheduled: Yes Indications: 72-year-old woman with altered bowel function here for diagnostic colonoscopy Procedure Notes Procedure in detail: The history and physical was performed/updated and the patient is ASA class is 2. The procedure was discussed in detail with the patient. Potential risks complications including infection, bleeding, missed diagnosis, perforation, need for surgery, and were explained. Their questions were answered and informed consent was obtained. Patient was brought to the procedure room and placed standard monitoring equipment. The patient's vital signs were monitored continuously throughout the entire procedure. Prior to starting time-out was performed. The patient was placed in the left lateral recumbent position. Procedural sedation was administered by anesthesia. Examination began with a thorough inspection of the perianal area there was no evidence of fissures, fistulae, external hemorrhoids or cutaneous malignancy. The colonoscopy scope was then placed into the anal canal and was advanced to the cecum, which was identified by the ileocecal valve, the appendiceal orifice and the confluence of the taenia. The scope was then slowly withdrawn examining colon thoroughly in all directions, irrigating it of any residual stool. The scope was retroflexed within the rectum The patient tolerated the procedure well. They will be discharged once criteria are met. The prep was of good/excellent quality. The withdrawl time was 7 minutes. FINDINGS * No masses or polyps. * No colonic stricture * Tortuous colon requiring external compression stiffening of the scope. * Mild diverticulosis of the descending colon Specimen(s): none sent Impression: Tortuous colon without masses Post-procedure Recommendations: High fiber diet Disposition: same day surgery
[2023-04-15 14:37] VITALS: BP 96/63; PULSE 69; RESP 11; TEMP 36.3; O2SAT 95
[2023-04-15 14:42] VITALS: BP 91/61; PULSE 72; RESP 13; O2SAT 95
[2023-04-15 14:47] VITALS: BP 98/61; PULSE 71; RESP 15; O2SAT 96
[2023-04-15 15:00] VITALS: BP 107/69; PULSE 66; RESP 13; TEMP 36.4; O2SAT 100
== END 2023-04-15 13:24 | disposition home or self-care (01) ==
PROVIDERS: Family Provider Family Medicine; PCP Family Medicine; Referring Provider Surgery; Visit Provider Surgery
PROC: 0DJD8ZZ Inspection of Lower Intestinal Tract, Via Natural or Artificial Opening Endoscopic (ICD-10-PCS; CPT 45378; principal; 2023-04-15 14:15)
DX: R19.4 Change in bowel habit (principal); K57.30 Diverticulosis of large intestine without perforation or abscess without bleeding
CPT/HCPCS: 45378

== ENCOUNTER → 2023-08-15 11:32 | Outpatient (CLI) | payer OTHER, SELFPAY ==
--- NOTE | 2023-08-15 11:33 | DI.MG.S_ITS ---
BILATERAL DIGITAL SCREENING MAMMOGRAM 3D/2D WITH CAD: 08/15/2023 CLINICAL: Routine screening. Family history of breast cancer. Comparison is made to exams dated: 07/20/2022 mammogram, 05/28/2021 mammogram, 02/16/2017 mammogram, 03/29/2018 mammogram, 05/26/2020 mammogram, and 04/06/2019 mammogram - [facility]. There are scattered areas of fibroglandular density in both breasts (category b / 25%-50% glandular tissue). Current study was also evaluated with a Computer Aided Detection (CAD) system. No significant masses, calcifications, or other findings are seen in either breast. There has been no significant interval change. IMPRESSION: NEGATIVE There is no mammographic evidence of malignancy. A 1 year screening mammogram is recommended. Based on the Tyrer Cuzick model (a risk assessment model) the patient's lifetime risk is 6.8% and her 10 year risk is 5.1%. According to the ACR, ACS, and NCCN guidelines, an annual breast MRI exam along with mammogram is recommended if the patient's lifetime risk is 20% or greater. This exam was interpreted at Station ID: [id number]. NOTE: For mammograms, a report in lay terms will be sent to the patient. Approximately 15% of breast malignancies will not be visualized mammographically. In the management of a palpable breast mass, a negative mammogram must not discourage biopsy of a clinically suspicious lesion. Electronically Signed By: Gallo gasca/jose g:08/15/2023 16:50:04 letter sent: Normal Exam ACR BI-RADS Category 1: Negative [id number]
== END ==
LOC: MAMMO 11:32
PROVIDERS: Family Provider Family Medicine; PCP Family Medicine; Referring Provider Family Medicine; Visit Provider Family Medicine
DX: Z12.31 Encounter for screening mammogram for malignant neoplasm of breast (principal); Z80.3 Family history of malignant neoplasm of breast; R92.323 Mammographic fibroglandular density, bilateral breasts
CPT/HCPCS: 77063; 77067

== ENCOUNTER → 2023-08-18 10:16 | Outpatient (CLI) | payer OTHER, SELFPAY ==
--- NOTE | 2023-08-18 10:16 | DI.US.S_ITS ---
PROCEDURE: US PELVIC COMPLETE INDICATIONS: Thickened endometrial stripe on US 2018 and 2021 TECHNIQUE: Real-time scanning was performed of the pelvic organs, with image documentation. Additional endovaginal scanning was necessary due to incomplete visualization of the adnexal and endometrial structures by transabdominal scanning. COMPARISON: [facility], US, US PELVIC COMPLETE, 04/07/2023, 12:36. FINDINGS: Uterus: Uterus is retroverted and normal in size at 4.2 x 2.5 x 3.6 cm. The myometrium is homogeneous. The endometrium measures 3.1 mm combined thickness. Trace fluid is present within the endocervical canal. There is a left posterior intramural fibroid which measures 0.7 x 0.6 x 0.7 cm. Ovaries: The right ovary is not visualized. The left ovary measures 0.9 x 0.3 x 1.8 cm, with a calculated ovarian volume of 0.5 cc. The ovaries have a normal sonographic appearance. Less than 12 follicles can be seen in the left ovary. No adnexal masses are seen. Other: No pathologic free abdominal or pelvic fluid. IMPRESSION: 1. Unremarkable pelvic ultrasound. The endometrial thickness is within normal limits in a postmenopausal female without bleeding. 2. Nonvisualization of the right ovary. We strive to produce accurate, complete, and clear reports of imaging services. To assist us in improving patient care, this report was composed using standard report templates and voice recognition software. Therefore, it may contain abnormal punctuation, insertions and/or omissions. Occasional wrong-word or sound-alike substitutions may occur. Though we review the report and make efforts to correct it, we do recommend that the report be read carefully in proper context to recognize any text inaccuracies. Dictated by: Alice Sibley M.D. on 08/18/2023 at 16:46 Approved by: Alice Sibley M.D. on 08/18/2023 at 16:47
== END ==
LOC: US 10:16
PROVIDERS: Family Provider Family Medicine; PCP Family Medicine; Referring Provider Obstetrics & Gynecology; Visit Provider Obstetrics & Gynecology
DX: R93.89 Abnormal findings on diagnostic imaging of other specified body structures (principal); D25.1 Intramural leiomyoma of uterus
CPT/HCPCS: 76830; 76856

== ENCOUNTER → 2023-11-02 06:58 | Outpatient (CLI) | payer OTHER, SELFPAY ==
[2023-11-02 08:23] LABS: Add Manual Diff / Slide Review NO; Basophils Absolute Auto 100 /uL (0-100); Eosinophils Absolute Auto 200 /uL (0-450); Eosinophils Percent Auto 4.1 % (2-4); Hematocrit 42.5 % (36-46); Hemoglobin 14.4 g/dL (12.0-16.0); Lymphocytes Absolute Auto 2200 /uL (1100-4500); Lymphocytes Percent Auto 36.5 % (25-40); Mean Corpuscular HGB Conc 33.9 % (30-36); Mean Corpuscular Volume 94.4 fL (80-100); Monocytes Absolute Auto 600 /uL (0-900); Neutrophils Absolute Auto 2900 /uL (1500-7000); Neutrophils Percent Auto 48.4 % (50-75); Platelet Count 287 X10^3/uL (150-400); Red Cell Distribution Width 13.4 % (11.6-14.8); White Blood Cell Count 6.1 X10^3/uL (4.5-11.0)
[2023-11-02 08:40] LABS: Alanine Aminotransferase 14 IU/L (<35); Albumin 4.1 g/dL (3.5-5.0); Albumin Globulin Ratio 1.8 (1.0-2.8); Alkaline Phosphatase 67 U/L (38-126); Aspartate Aminotransferase 24 IU/L (14-36); Bilirubin Total 0.7 mg/dL (0.2-1.3); Blood Urea Nitrogen 18 mg/dL (7-17); Calcium 9.5 mg/dL (8.4-10.2); Carbon Dioxide 29 mmol/L (22-32); Chloride 106 mmol/L (98-107); Cholesterol 211 mg/dL (140-199); Estimated Glomerular Filt Rate > 60 mL/min (>60); Globulin 2.3 g/dL (1.7-4.1); Glucose 91 mg/dL (80-110); HDL Cholesterol 63 mg/dL (40-60); HEMOLYSIS < 15 (0-50); LDL Cholesterol Calculated 128 mg/dL (<100); Potassium 4.9 mmol/L (3.4-5.1); Sodium 139 mmol/L (137-145); Total Protein 6.4 g/dL (6.3-8.2); Triglycerides 99 mg/dL (35-150)
[2023-11-02 09:10] LABS: TSH w/ Reflex to FT4 3.97 uIU/mL (0.47-4.68)
== END ==
PROVIDERS: Family Provider Family Medicine; PCP Family Medicine; Referring Provider Family Medicine; Visit Provider Family Medicine
DX: K57.30 Diverticulosis of large intestine without perforation or abscess without bleeding (principal); E83.52 Hypercalcemia; M85.88 Other specified disorders of bone density and structure, other site
CPT/HCPCS: 36415; 80053; 80061; 84443; 85025

== ENCOUNTER → 2024-02-11 10:36 | Outpatient (CLI) | payer OTHER, SELFPAY ==
--- NOTE | 2024-02-11 10:37 | DI.RAD.S_ITS ---
PROCEDURE: XR CHEST 2V INDICATIONS: Cough TECHNIQUE: 2 views of the chest were acquired. COMPARISON: [facility], CR, XR CHEST 2V, 03/03/2021, 10:06. FINDINGS: Heart, mediastinum and pulmonary vascular: Heart is normal in size and configuration. Mediastinum is unremarkable. No adenopathy appreciated mediastinum or hilum. Pulmonary vascular is normal. Lungs: Clear Pleural spaces: Normal-no effusions or pneumothorax. Bones and soft tissues: Normal IMPRESSION: Normal chest. Dictated by: Lencho Luu M.D. on 02/13/2024 at 11:33 Approved by: Lencho Luu M.D. on 02/13/2024 at 11:34
== END ==
PROVIDERS: Family Provider Family Medicine; PCP Family Medicine; Referring Provider Nurse Practitioner Family; Visit Provider Nurse Practitioner Family
DX: R05.9 Cough, unspecified (principal)
CPT/HCPCS: 71046

== ENCOUNTER → 2024-06-20 16:01 | Outpatient (CLI) | payer OTHER, SELFPAY ==
[2024-06-20 17:24] LABS: Erythrocyte Sedimentation Rate 5 MM/HR (0-20)
[2024-06-20 17:47] LABS: C-Reactive Protein Quant < 0.5 mg/dL (<1.0)
[2024-06-20 18:16] LABS: TSH w/ Reflex to FT4 1.78 uIU/mL (0.47-4.68)
[2024-06-20 18:35] LABS: Vitamin B12 287 pg/mL (239-931)
[2024-06-25 13:09] LABS: ANA Screen, IFA Negative (.)
== END ==
PROVIDERS: Family Provider Family Medicine; PCP Family Medicine; Referring Provider Physician Assistant; Visit Provider Physician Assistant
DX: K59.00 Constipation, unspecified (principal); R68.2 Dry mouth, unspecified; H04.123 Dry eye syndrome of bilateral lacrimal glands; K05.6 Periodontal disease, unspecified
CPT/HCPCS: 36415; 82607; 84443; 85651; 86038; 86140

== ENCOUNTER → 2024-08-16 15:28 | Outpatient (CLI) | payer OTHER, SELFPAY ==
--- NOTE | 2024-08-16 15:30 | DI.MG.S_ITS ---
MM screening mammo BI: 08/16/2024. BI-RADS: 0 CLINICAL: 73-year old female for bilateral screening mammogram. Tyrer-Cuzick lifetime risk of 5.2%. No personal or first-degree family history of breast cancer. Current reported family history of breast cancer: maternal aunt. PRIOR EXAMS 08/15/2023, 07/20/2022, 05/28/2021, 05/26/2020, 04/06/2019, 03/29/2018, 02/16/2017, 02/13/2016, 02/11/2015. MAMMOGRAPHY TECHNIQUE: 2D and 3D (tomosynthesis) digital mammographic views obtained, with additional images as needed for full coverage. Current study was also evaluated with a Computer Aided Detection (CAD) system. DENSITY B. There are scattered areas of fibroglandular density. MAMMOGRAPHY FINDINGS Right: Upper at 12:00, Anterior depth, measuring 0.7 cm: Focal asymmetry needing additional imaging evaluation. Left: No suspicious mass, asymmetry, microcalcification, or other abnormality seen. IMPRESSION: Right (Asymmetry): Upper at 12:00, Anterior depth, measuring 0.7 cm * Incomplete - focal asymmetry needing additional imaging evaluation. Left * No evidence of malignancy. RECOMMENDATIONS Right: Upper at 12:00, Anterior depth * Further evaluation with diagnostic mammography and diagnostic ultrasound. OVERALL ASSESSMENT CATEGORY BI-RADS-0: Incomplete - Need Additional Imaging Evaluation. ELECTRONICALLY SIGNED: Lalitha Grady M.D. on 08/17/2024 at 08:39:51 AM PT Interpreting Station ID: [id number]
== END ==
PROVIDERS: Family Provider Family Medicine; PCP Family Medicine; Referring Provider Family Medicine; Visit Provider Family Medicine
DX: Z12.31 Encounter for screening mammogram for malignant neoplasm of breast (principal); Z80.3 Family history of malignant neoplasm of breast
CPT/HCPCS: 77063; 77067

== ENCOUNTER → 2024-09-20 12:00 | Outpatient (CLI) | payer OTHER, SELFPAY ==
--- NOTE | 2024-09-20 12:01 | DI.US.S_ITS ---
US breast RT limited, MM diagnostic mammo unilat RT: 09/20/2024 BI-RADS: 2 CLINICAL: 73-year old female for right diagnostic mammogram and right diagnostic breast ultrasound that is a recall from screening on 08/16/2024. Tyrer-Cuzick lifetime risk of 5.2%. No personal or first-degree family history of breast cancer. Current reported family history of breast cancer: maternal aunt. PRIOR EXAMS Mammogram(s): 08/16/2024. Ten Other Exams on 08/15/2023, 07/20/2022, 05/28/2021, 05/26/2020, 04/06/2019, 03/29/2018, 02/16/2017, 02/13/2016, 02/11/2015. MAMMOGRAPHY TECHNIQUE: 2D and 3D (tomosynthesis) digital mammographic views obtained, with additional images as needed for full coverage. Current study was also evaluated with a Computer Aided Detection (CAD) system. ULTRASOUND TECHNIQUE Real-time davenport scale and color doppler imaging of the area of clinical interest was performed with image documentation. DENSITY Right: B. There are scattered areas of fibroglandular density. MAMMOGRAPHY FINDINGS Right (finding-1): Upper at 12:00, Anterior depth, measuring 0.6 cm, previously measuring 0.7 cm: There is a circumscribed, oval mass present. ULTRASOUND FINDINGS Right (finding-1): Upper at 12:00, 4 cm from nipple, measuring 0.6 x 0.5 x 0.3 cm: Correlating with findings on mammogram there is a cluster of microcysts showing posterior acoustic enhancement. Doppler shows no vascularity. IMPRESSION: Right * No evidence of malignancy with benign findings. RECOMMENDATIONS Bilateral * Annual screening mammography. COMMENTS: Findings and recommendations were conveyed to the patient during today's evaluation. OVERALL ASSESSMENT CATEGORY BI-RADS-2: Benign. The [employer] recommends annual screening mammography beginning at age 40 for women with average risk of breast cancer. ELECTRONICALLY SIGNED: Anahi Blankenship M.D. on 09/20/2024 at 01:53:16 PM PT Interpreting Station ID: [id number]
[2024-09-20 16:35] LABS: Vitamin B12 322 pg/mL (239-931)
== END ==
PROVIDERS: Physician Assistant; Family Provider Family Medicine; PCP Family Medicine; Referring Provider Family Medicine; Visit Provider Family Medicine
DX: R92.8 Other abnormal and inconclusive findings on diagnostic imaging of breast (principal); E53.8 Deficiency of other specified B group vitamins; Z80.3 Family history of malignant neoplasm of breast
CPT/HCPCS: 36415; 76642; 77065; 82607; G0279

== ENCOUNTER → 2024-09-21 11:18 | Outpatient (CLI) | payer OTHER, SELFPAY | PROVIDERS: Family Provider Family Medicine; PCP Family Medicine; Referring Provider Physician Assistant; Visit Provider Physician Assistant | DX: E53.8 Deficiency of other specified B group vitamins (principal) | CPT/HCPCS: 36415; 83921 ==

== ENCOUNTER 2024-10-31 15:21 | Emergency (ER) | payer OTHER, SELFPAY ==
[2024-10-31] VITALS (11 sets, daily range): BP systolic 135–177; BP diastolic 78–88; PULSE 63–76; RESP 17–35; TEMP 37; O2SAT 87–100; BMI 24.1
--- NOTE | 2024-10-31 16:00 | EKG_ITS ---
[place] [id number] [place] [id number] Test Date: 2024-10-31 Pat Name: Haley Rizo Department: Room: Gender: Female Cook Cold Meat: DARLYN : 1950 Requested By: Order Number: [id number] Reading MD: Laron Corona Measurements Intervals [place] Rate: 76 P: 65 TN: 202 QRS: 30 QRSD: 72 T: 29 QT: 382 QTc: 429 Interpretive Statements Sinus rhythm with occasional premature ventricular complexes ST & T wave abnormality, consider anterior ischemia Electronically Signed On 11-01-2024 18:59:38 PDT by Laron Corona
--- NOTE | 2024-10-31 16:09 | ED.GENADULT ---
HPI - General Adult General Chief complaint: Shortness of Breath/Dyspnea Stated complaint: oxygen is low Time Seen by Provider: 10/31/24 16:09 Mode of arrival: Ambulatory History of Present Illness HPI narrative: 73-year-old female no significant past medical history presents to the emergency department from home for evaluation of abdominal pain, constipation, she states that she always has constipation tried to take [id number] maintenance. According to the patient she has had a colonoscopy and told that she has a ?torturous bowel she states that she just recently came back from [place] and states that traveling does cause worsening constipation, she states that she feels like the pressure is going up into her chest and feels like she can not take a deep breath but denies any actual chest pain shortness breath or pleuritic chest pain. She states that she is here because she is having worsening constipation. Denies any other symptoms at this time. Related Data Previous Rx's ?Medication ?Instructions ?Recorded wheat dextrin 3 gram/3.8 gram oral 3 g PO BID #144 grams 04/15/23 powder (Benefiber Sugar Free (dextrin)) valacyclovir 1 gram tablet 1,000 mg PO BID #180 tabs 07/19/24 zolpidem 5 mg tablet (Ambien) 5 mg PO BEDTIME #5 tabs 09/14/24 alprazolam 0.25 mg tablet 0.25 mg PO DAILY PRN anxiety #24 09/17/24 tabs lactulose 10 gram oral packet 20 g PO BID 3 days #15 ea 10/31/24 Allergies Allergy/AdvReac Type Severity Reaction Status Date / Time fentanyl AdvReac Intermediate N/V Verified 02/22/24 09:24 Opioids - Morphine Analogues AdvReac Intermediate N/V Verified 02/22/24 09:24 codeine AdvReac Mild N/V Verified 02/22/24 09:24 Review of Systems Review of Systems Narrative: General: Denies fever, chills, weight loss HEENT: Denies headache, eye drainage, eye irritation, head trauma, sore throat, voice change Cardiovascular: Denies any chest pain, palpitations, tachycardia Respiratory: Denies any shortness of breath, cough, wheeze, stridor GI/: Positive abdominal pain, nausea, constipation, denies vomiting, diarrhea, bright red blood per rectum, melanotic stools, urinary frequency, urinary retention, dysuria, hematuria MSK: Denies any joint pain, muscle pains, swelling Skin: Denies any rashes, lesions, discoloration Neuro: Denies any headache, lightheadedness, dizziness, fainting, weakness Psych: Denies SI/HI Patient History Medical History (Updated 10/31/24 @ 18:34 by Addison Rabago DO) Endometrial thickening on ultrasound Right inguinal hernia Fibrocystic breast changes of both breasts Hypercalcemia Compression fracture of body of thoracic vertebra Compression fracture Back pain, thoracic Serum calcium elevated Lymphadenopathy Pelvic pain Postmenopausal Arthritis of right knee Low back pain Chicken pox (1956) Chronic back pain (1999) Measles (1957) Mumps (1957) Osteopenia (2004) Fractures (2007) Foot pain (1989) Herpes (1979) Hepatitis A (1956) Tinnitus (2009) Skin cancer (2013) Surgical History S/P D&C (status post dilation and curettage) (05/11/18) Status post tubal ligation (1986) Family History Father Diabetes mellitus Heart disease Hypertension Stroke Mother Diabetes mellitus Heart disease Hypertension Social History marital status: number of children: 0 household members: spouse lives independently: Yes occupational status: previously employed alcohol intake: current substance use type: does not use alcohol intake frequency: holidays/special occasions only Exam Narrative Exam Narrative: General: Cooperative, well-developed, not in acute distress HEENT: Normocephalic, atraumatic, PERRLA, normal sclera, eyelids normal Neck: Active full range of motion, atraumatic Chest: Normal to inspection, negative crepitus, no overlying erythema ecchymosis Respiratory: Normal respiratory effort, not in acute respiratory distress, clear to auscultation bilaterally negative cough, wheeze, tachypnea, rhonchi, rales Cardiology: Regular rate rhythm negative gallop, murmur, rubs GI/: No tenderness to palpation, soft, non rigid, normal to inspection, exam deferred MSK: Full active range of motion in all 4 extremities, atraumatic, no tenderness to palpation of any bony prominences Skin: No rashes or lesions noted Neuro: Alert awake oriented x3, moves all 4 extremities spontaneously, cranial nerves intact, able to answer all questions appropriately follows commands appropriately Psych: Cooperative, negative suicidal or homicidal ideations Initial Vital Signs Initial Vital Signs: Vital Signs Temperature 98.6 F 10/31/24 15:26 Pulse Rate 73 10/31/24 15:26 Respiratory Rate 20 10/31/24 15:26 Blood Pressure 177/80 H 10/31/24 15:26 Pulse Oximetry 98 10/31/24 15:26 Oxygen Delivery Method Room Air 10/31/24 15:26 Course Orders Ordered: ED Orders 10/31/24 16:10 Complete Blood Count AUTO DIFF Stat Comprehensive Metabolic Panel Stat Lactate (Lactic Acid) Stat Lipase Stat MAG [Magnesium] Stat 10/31/24 16:21 CT abdomen pelvis w con Stat Discontinued Medications Sodium Chloride (Normal Saline 0.9%) 1,000 mls @ 1,000 mls/hr IV BOLUS ONE Stop: 10/31/24 17:19 Last Infusion: 10/31/24 18:11 Dose: Infused Documented By: Admin: 10/31/24 16:59 Dose: 1,000 mls/hr Documented By: SB Vital Signs Vital signs: Vital Signs - 8 hr 10/31/24 15:26 Temperature 98.6 F Pulse Rate 73 Respiratory Rate 20 Blood Pressure 177/80 H Pulse Oximetry 98 Oxygen Delivery Method Room Air Medical Decision Making Differential Diagnosis Differential Diagnosis: Constipation, diverticulitis, urinary tract infection, electrolyte abnormal Lab Data 10/31/24 16:10 10/31/24 16:10 Labs: Lab Results 10/31/24 Range/Units 16:10 WBC 6.9 (4.5-11.0) X10^3/uL RBC 4.72 (4.0-5.2) X10^6/uL Hgb 15.3 (12.0-16.0) g/dL Hct 45.1 (36-46) % MCV 95.5 (80-100) fL MCH 32.5 (26-34) PG MCHC 34.0 (30-36) % RDW 13.4 (11.6-14.8) % Plt Count 306 (150-400) X10^3/uL Neut % (Auto) 66.5 (50-75) % Lymph % (Auto) 24.7 L (25-40) % [place] % (Auto) 7.3 (3-14) % Eos % (Auto) 0.8 L (2-4) % Baso % (Auto) 0.7 (0-2) % Neut # (Auto) 4600 (3421-4633) /uL Lymph # (Auto) 1700 (1397-4315) /uL [place] # (Auto) 500 (0-900) /uL Eos # (Auto) 100 (0-450) /uL Baso # (Auto) 0 (0-100) /uL Sodium 137 (137-145) mmol/L Potassium 4.1 (3.4-5.1) mmol/L Chloride 106 (98-107) mmol/L Carbon Dioxide 22 (22-32) mmol/L BUN 14 (7-17) mg/dL Creatinine 0.83 (0.52-1.04) mg/dL Estimated GFR > 60 (>60) mL/min BUN/Creatinine Ratio 16.9 (6-22) Glucose 113 H (70-99) mg/dL Lactate 1.5 (0.7-2.1) mmol/L Calcium 10.4 H (8.4-10.2) mg/dL Magnesium 2.3 (1.6-2.3) mg/dL Total Bilirubin 0.8 (0.2-1.3) mg/dL AST 28 (14-36) IU/L ALT 17 (<35) IU/L Alkaline Phosphatase 81 (38-126) U/L Total Protein 7.9 (6.3-8.2) g/dL Albumin 4.8 (3.5-5.0) g/dL Globulin 3.1 (1.7-4.1) g/dL Albumin/Globulin Ratio 1.5 (1.0-2.8) Lipase 92 (23-300) U/L Urine Dip Bedside Urine Glucose Negative Bedside Urine Bilirubin - Negative Bedside Urine Ketone +/- 5 Urine Specific [place] 1.010 Bedside Urine Occult Blood - Negative Bedside Urine pH 7.0 Bedside Urine Protein - Negative Bedside Urine Urobilinogen - Negative Bedside Urine Nitrite - Negative Bedside Urine Leukocytes - Negative Esterase Point of care testing: Urine Dip Bedside Urine Glucose Negative Bedside Urine Bilirubin - Negative Bedside Urine Ketone +/- 5 Urine Specific [place] 1.010 Bedside Urine Occult Blood - Negative Bedside Urine pH 7.0 Bedside Urine Protein - Negative Bedside Urine Urobilinogen - Negative Bedside Urine Nitrite - Negative Bedside Urine Leukocytes - Negative Esterase Imaging Data CT scan - abdomen/pelvis: Radiologist's Impression: [address] [address] [address] Scan Report Signed Patient: Haley Rizo MR#: [id number] : 1950 Acct:[id number] Age/Sex: 73 / F Date of Service: 10/31/24 Loc: ED Accession Number: [id number] Procedure: CT abdomen pelvis w con Ordering Provider: Addison Rabago D.O. PROCEDURE: CT ABDOMEN PELVIS W CON INDICATIONS: abd pain, constipation TECHNIQUE: After the administration of intravenous contrast, axial sections acquired from the lung bases to the pubic symphysis. Coronal and sagittal reformats were performed. For radiation dose reduction, the following was used: automated exposure control, adjustment of mA and/or kV according to patient size. COMPARISON: [facility], CT, CT ABDOMEN PELVIS W CON, 04/02/2023, 11:42. FINDINGS: Image quality: Diagnostic. Lower Chest: No significant findings. ABDOMEN: Liver: No solid mass. Gallbladder: No radiopaque gallstones or wall thickening. Biliary ducts: No biliary dilation. Pancreas: No ductal dilation. Spleen: Size is within normal limits. Calcified splenic granuloma. Adrenal Glands: No adrenal nodules. Kidneys and Ureters: No hydronephrosis. No solid mass. No complex renal cystic lesion which requires follow up. Stomach and Bowel: Normal colonic caliber, without significant wall thickening. Moderate colonic stool load. Fecal debris within the small bowel. Mild diverticulosis without diverticulitis. Normal appendix. Peritoneum: No abnormal intraperitoneal fluid. No free air. Ventral Wall: No significant ventral hernia. Abdominal Nodes: No retroperitoneal or mesenteric adenopathy by size criteria. Vessels: Aorta and inferior vena cava are normal in size. PELVIS: Pelvic Organs: Unremarkable. Bladder: No bladder wall thickening, accounting for underdistention. Pelvic Nodes: No enlarged lymph nodes. Miscellaneous: No inguinal hernias are seen. Bones: No aggressive osseous abnormality. Degenerative disc disease of the lumbar spine. IMPRESSION: Moderate colonic stool load. Fecal debris within the small-bowel, usually indicating small intestinal bacterial overgrowth versus slow transit. Colonic diverticulosis without evidence of diverticulitis. MDM Narrative Medical decision making narrative: 73-year-old female history of constipation presenting for abdominal pain constipation states that it is been a ?lifelong issue however states it got worse after she travel to [place], she states that traveling does causes her symptoms to worsen. He did have a bowel movement yesterday. States that she feels like the pressure in her abdomen is pushing up and she can not take a deep breath but denies actual pleuritic chest pain, she denies any chest pain shortness of breath fever chills nausea or any other GI/ symptoms time. Patient had lab work imaging urinalysis performed here in the emergency department did not show any signs of acute urinary tract infection, CT scan showing moderate colonic stool load, otherwise unremarkable labs. Patient was given dose of lactulose here instructed to follow up with primary care and GI in outpatient setting she was given strict return precautions she verbalized understanding of this and agrees to being discharged home with outpatient follow up Discharge Plan Departure Patient Disposition: Home Clinical Impression: Constipation Instructions: DI for Constipation Activity Restrictions/Additional Instructions: Please follow up with primary care and GI Please read the discharge instructions sheet carefully and bring all papers to all doctor follow-up visits, as it may contain information that your doctor may want to see. Disease processes change and evolve, if your symptoms worsen or if you develop any new symptoms that are concerning to you please return for evaluation. Your evaluation today does not show any evidence of any life-threatening/serious illnesses requiring admission to the hospital or surgery. Please follow-up with your doctor for re-evaluation in approximately 1 day. Seek immediate medical attention for any worrisome symptoms. *If you do not have a primary care provider please contact the [facility] Resource line at [phone]. They will ask some questions about your medical history and help get you set up with a doctor in the community. Prescriptions: New lactulose 10 gram packet 20 g PO BID 3 Days Qty: 15 0RF No Action valacyclovir 1 gram tablet 1,000 mg PO BID Qty: 180 1RF zolpidem [Ambien] 5 mg tablet 5 mg PO BEDTIME Qty: 5 0RF alprazolam 0.25 mg tablet 0.25 mg PO DAILY PRN (Reason: anxiety) Qty: 24 0RF Benefiber Sugar Free (dextrin) 3 gram/3.8 gram powder 3 g PO BID Qty: 144 0RF Rx Instructions: mix into at least 4 oz water or juice before administering Referrals: Wei Luna MD [Primary Care Provider, Family Practice] Stand Alone Forms: Patient Portal/API
--- NOTE | 2024-10-31 16:21 | DI.CT.S_ITS ---
PROCEDURE: CT ABDOMEN PELVIS W CON INDICATIONS: abd pain, constipation TECHNIQUE: After the administration of intravenous contrast, axial sections acquired from the lung bases to the pubic symphysis. Coronal and sagittal reformats were performed. For radiation dose reduction, the following was used: automated exposure control, adjustment of mA and/or kV according to patient size. COMPARISON: [facility], CT, CT ABDOMEN PELVIS W CON, 04/02/2023, 11:42. FINDINGS: Image quality: Diagnostic. Lower Chest: No significant findings. ABDOMEN: Liver: No solid mass. Gallbladder: No radiopaque gallstones or wall thickening. Biliary ducts: No biliary dilation. Pancreas: No ductal dilation. Spleen: Size is within normal limits. Calcified splenic granuloma. Adrenal Glands: No adrenal nodules. Kidneys and Ureters: No hydronephrosis. No solid mass. No complex renal cystic lesion which requires follow up. Stomach and Bowel: Normal colonic caliber, without significant wall thickening. Moderate colonic stool load. Fecal debris within the small bowel. Mild diverticulosis without diverticulitis. Normal appendix. Peritoneum: No abnormal intraperitoneal fluid. No free air. Ventral Wall: No significant ventral hernia. Abdominal Nodes: No retroperitoneal or mesenteric adenopathy by size criteria. Vessels: Aorta and inferior vena cava are normal in size. PELVIS: Pelvic Organs: Unremarkable. Bladder: No bladder wall thickening, accounting for underdistention. Pelvic Nodes: No enlarged lymph nodes. Miscellaneous: No inguinal hernias are seen. Bones: No aggressive osseous abnormality. Degenerative disc disease of the lumbar spine. IMPRESSION: Moderate colonic stool load. Fecal debris within the small-bowel, usually indicating small intestinal bacterial overgrowth versus slow transit. Colonic diverticulosis without evidence of diverticulitis. Dictated by: Amos Cisse M.D. on 10/31/2024 at 16:57 Approved by: Amos Cisse M.D. on 10/31/2024 at 17:01
[2024-10-31 16:32] LABS: Add Manual Diff / Slide Review NO; Basophils Absolute Auto 0 /uL (0-100); Basophils Percent Auto 0.7 % (0-2); Eosinophils Absolute Auto 100 /uL (0-450); Eosinophils Percent Auto 0.8 % (2-4); Hematocrit 45.1 % (36-46); Hemoglobin 15.3 g/dL (12.0-16.0); Lymphocytes Absolute Auto 1700 /uL (1100-4500); Lymphocytes Percent Auto 24.7 % (25-40); Mean Corpuscular Hemoglobin 32.5 PG (26-34); Mean Corpuscular Volume 95.5 fL (80-100); Monocytes Absolute Auto 500 /uL (0-900); Monocytes Percent Auto 7.3 % (3-14); Neutrophils Absolute Auto 4600 /uL (1500-7000); Neutrophils Percent Auto 66.5 % (50-75); Platelet Count 306 X10^3/uL (150-400); Red Blood Cell Count 4.72 X10^6/uL (4.0-5.2); Red Cell Distribution Width 13.4 % (11.6-14.8); White Blood Cell Count 6.9 X10^3/uL (4.5-11.0)
[2024-10-31 16:40] LABS: Alanine Aminotransferase 17 IU/L (<35); Albumin 4.8 g/dL (3.5-5.0); Albumin Globulin Ratio 1.5 (1.0-2.8); Alkaline Phosphatase 81 U/L (38-126); Aspartate Aminotransferase 28 IU/L (14-36); BUN Creatinine Ratio 16.9 (6-22); Bilirubin Total 0.8 mg/dL (0.2-1.3); Blood Urea Nitrogen 14 mg/dL (7-17); Calcium 10.4 mg/dL (8.4-10.2); Carbon Dioxide 22 mmol/L (22-32); Chloride 106 mmol/L (98-107); Estimated Glomerular Filt Rate > 60 mL/min (>60); Globulin 3.1 g/dL (1.7-4.1); Glucose 113 mg/dL (70-99); HEMOLYSIS < 15 (0-50); Lactate (Lactic Acid) 1.5 mmol/L (0.7-2.1); Lipase 92 U/L (23-300); Potassium 4.1 mmol/L (3.4-5.1); Sodium 137 mmol/L (137-145); Total Protein 7.9 g/dL (6.3-8.2)
[2024-10-31] MEDS: SODIUM CHLORIDE 0.9% 1,000 ML 1000 ML IV (16:59)
[2024-10-31 17:00] LABS: Magnesium 2.3 mg/dL (1.6-2.3)
--- NOTE | 2024-10-31 18:37 | DI.CT.S_ITS ---
PROCEDURE: CT ANGIO CHEST PE PROTOCOL INDICATIONS: hypoxemia TECHNIQUE: After the administration of intravenous contrast, 2 mm thick sections acquired from the pulmonary apices to the posterior costophrenic angles. 3-dimensional maximum intensity projection (MIP) coronal and sagittal reformats were then acquired through the thorax. For radiation dose reduction, the following was used: automated exposure control, adjustment of mA and/or kV according to patient size. COMPARISON: None. FINDINGS: Image quality: Diagnostic. Pulmonary arteries: Pulmonary arteries are normal in size, and demonstrate no intraluminal filling defects to suggest central pulmonary embolism. Lower Neck: No enlarged lymph nodes. Thyroid: No thyroid nodules which require sonographic follow up, per consensus guidelines. Axillae: No enlarged lymph nodes. Chest Wall: Unremarkable. Bones: Unremarkable. Lungs and Pleura: No pneumothorax or pleural effusions. No consolidation or suspicious nodules. Heart: Heart size is normal. No pericardial effusion. Thoracic Vessels: No aortic aneurysm. Mediastinum and Ana: No enlarged lymph nodes. Esophagus: No wall thickening. No hiatal hernia. Upper Abdomen: Visualized upper abdomen solid organs and bowel loops appear normal. IMPRESSION: No pulmonary embolus. No acute cardiopulmonary process. Dictated by: Jonathan Smith M.D. on 10/31/2024 at 19:34 Approved by: Jonathan Smith M.D. on 10/31/2024 at 19:40
--- NOTE | 2024-10-31 18:42 | PC.NURSE ---
Ambulated pt on RA around unit. Pt sats dropped to 87-89% on RA. Dr Colon notified. New orders recieved.
[2024-10-31 18:56] LABS: PTT Partial Thromboplastin Tim 33 SECONDS (25.1-36.5)
[2024-10-31 18:57] LABS: Creatine Kinase 58 U/L (30-135)
[2024-10-31 19:10] LABS: NT-proBNP (BNP-Adult 18+) 38 pg/mL (<125); Troponin I < 0.012 ng/mL (0.01-0.034)
[2024-10-31] MEDS: LACTULOSE 20 GM/30 ML SOLUTION PO (19:14)
[2024-10-31] MEDS: SODIUM CHLORIDE 0.9% 1,000 ML 250 ML IV (19:30)
== END 2024-10-31 20:46 | disposition home or self-care (01) ==
PROVIDERS: Student in an Organized Health Care Education/Training Program; Emergency Provider Emergency Medicine; Family Provider Family Medicine; PCP Family Medicine
DX: K59.00 Constipation, unspecified (principal); R06.02 Shortness of breath; R09.02 Hypoxemia; R10.9 Unspecified abdominal pain
CPT/HCPCS: 36415; 71275; 74177; 80053; 81003; 82550; 83605; 83690; 83735; 83880; 84484; 85025; 85610; 85730; 93005; 96360; 99284; Q9967

== ENCOUNTER → 2024-12-25 10:14 | Outpatient (CLI) | payer OTHER, SELFPAY | PROVIDERS: Family Provider Family Medicine; PCP Family Medicine; Referring Provider Physician Assistant; Visit Provider Physician Assistant | DX: E53.8 Deficiency of other specified B group vitamins (principal) | CPT/HCPCS: 83921 ==